=== PATIENT | male | born 2000 | race Caucasian/White ===

== ENCOUNTER 2021-07-31 18:54 | Emergency (ER) | payer MEDICAID, SELFPAY | END 2021-07-31 19:18 | disposition left against medical advice (07) | PROVIDERS: Emergency Provider Emergency Medicine | DX: S49.90XA Unspecified injury of shoulder and upper arm, unspecified arm, initial encounter (principal); X58.XXXA Exposure to other specified factors, initial encounter; Y93.9 Activity, unspecified; Y92.9 Unspecified place or not applicable; Y99.9 Unspecified external cause status ==

== ENCOUNTER 2021-10-11 19:51 | Emergency (ER) | payer MEDICAID, SELFPAY ==
[2021-10-11 21:43] VITALS: BP 133/72; PULSE 67; RESP 18; TEMP 36.7; O2SAT 100; BMI 28.3
--- NOTE | 2021-10-11 22:36 | ED.EXTPRO ---
HPI - Extremity Problem General Chief complaint: Extremity Injury, Upper Stated complaint: Right arm lac Time Seen by Provider: 10/11/21 22:36 Source: patient Mode of arrival: ambulatory Limitations: no limitations History of Present Illness HPI Narrative: 21-year-old male came in for evaluation of the left forearm small laceration that had been accidentally while moving a couch and [place] fell piece of glass is shattered and causing a small laceration on the left forearm. Patient declined any SI or HI, patient confirmed this was incidental event. Related Data Allergies Allergy/AdvReac Type Severity Reaction Status Date / Time No Known Allergies Allergy Unverified 08/10/20 18:53 [No Known Allergies*] Review of Systems Review of Systems: All other systems are reviewed and are negative Constitutional: Reports as per HPI and Reports no additional constitutional complaints Eyes: Reports as per HPI and Reports no additional eye complaints Reports system reviewed and no additional complaints, except as documented Cardiovascular: Reports as per HPI and Reports no additional cardiovascular complaints Respiratory: Reports as per HPI and Reports no additional respiratory complaints Gastrointestinal: Reports as per HPI and Reports no additional gastrointestinal complaints Genitourinary: Reports no additional female genitourinary complaints Musculoskeletal: Reports no additional musculoskeletal complaints Skin/Breast: Reports system reviewed and no additional complaints, except as docu Psychiatric: Reports no additional psychiatric complaints Endocrine: Reports no additional endocrine complaints Hematologic/Lymphatic: Reports no additional hematologic/lymphatic complaints Allergic/Immunologic: Reports no additional allergic/immunologic complaints Reports system reviewed and no additional complaints, except as documented and Reports Abnormal speech present [facility] Social History Social History Advance Directives: No Advance Directives Information Provided: No Physical Exam Vital Signs: Vital Signs: Last Vital Signs Temp 98.1 F 10/11/21 21:43 Pulse 67 10/11/21 21:43 Resp 18 10/11/21 21:43 BP 133/72 10/11/21 21:43 Pulse Ox 100 10/11/21 21:43 Body Mass Index 28.3 Vital signs have been reviewed as appeared to be correct. Blood pressure normal. Heart rate normal. Respiration rate normal. Temperature normal. Oxygen saturation normal. Appearance: Alert. Oriented X3. No acute distress. Head: Normal external exam. Normocephalic. Atraumatic. No Velasco signs noted. No raccoon eyes noted Eyes: PERRLA. EOMI. Conjunctiva and sclera normal. Eyelids normal. ENT: TM's Normal. Pharynx normal. Uvula midline. Moist mucous membranes. No trismus noted. No drooling noted. No muffled voice noted. Neck: Normal inspection. Neck supple. FROM. No adenopathy. Thyroid Normal. No meningeal signs. No neck mass noted. CVS: Normal heart rate and rhythm. Heart sound normal. No murmurs noted. Pulses normal throughout. Respiratory: No respiratory distress. Painless inspiration. Breath sounds normal. No wheezes/rales/rhonchi noted. Chest nontender. No accessory muscle usage noted or decreased air movement noted. Abdomen: Soft and nontender. Bowel sounds normal in all 4 quadrants. No distention noted. No organomegaly noted. No visible injury noted. Back: No CVA tenderness. Full range of motion noted. Skin: Skin warm and dry. Normal skin color. Normal skin turgor. No rashes/lesions/lacerations noted. Extremities: Left arm exam: Left forearm on the radial aspect 5 cm superficial laceration, no active bleeding, neurovascularly intact the distal and proximal to the laceration. Neuro: Oriented X 3. Cranial nerve exam: II-XII are grossly intact No motor deficit. No sensory deficit. Reflexes normal. Course Course Course Narrative: Assessment and plan. 21-year-old male with a superficial laceration happen after incidental fall of a manner while moving furniture, laceration will be repaired with Dermabond. Patient neurovascularly intact. No active bleeding. Procedures Laceration Laceration 1: Site: upper extremity (Left forearm) Side (If applicable): left Size (cm): 4 Description: linear Depth: simple, single layer Skin layer closed with: other (Dermabond) Discharge Plan Discharge Clinical Impression: Laceration of forearm, left Patient Disposition: Home, Self-Care Instructions: Laceration (ED) Referrals: Physician,Unknown J [Primary Care Provider] - 2 days
== END 2021-10-11 22:53 | disposition home or self-care (01) ==
PROVIDERS: Emergency Provider Emergency Medicine
DX: S51.812A Laceration without foreign body of left forearm, initial encounter (principal); W25.XXXA Contact with sharp glass, initial encounter; Y93.E9 Activity, other interior property and clothing maintenance; Y92.039 Unspecified place in apartment as the place of occurrence of the external cause; Y99.9 Unspecified external cause status
CPT/HCPCS: 12002; 99283

== ENCOUNTER 2022-08-15 03:25 | Emergency (ER) | payer OTHER, SELFPAY ==
--- NOTE | ~2022-08-15 | US_ITS ---
EXAMINATION: US SCROTUM CLINICAL INFORMATION: Pain. Question torsion. COMPARISON: None TECHNIQUE: A sonogram of the scrotum was performed assessing weems-scale appearance and color Doppler flow. Spectral Doppler analysis of the arterial and venous flow were performed in the testes bilaterally. FINDINGS: RIGHT: Right testicle measures 4.2 x 2.5 x 3 cm, volume 16.7 mL. No focal testicular parenchymal lesions are visualized. Spectral Doppler analysis of the arterial and venous flow is normal in the right testis. Scrotal hermilo noted. Right epididymal head is normal in size. No right hydrocele or varicocele is seen. Right epididymal Doppler flow is normal. LEFT: Left testicle measures 4.1 x 2.7 x 3 cm, volume 17.5 mL. No focal testicular parenchymal lesions are visualized. Spectral Doppler analysis of the arterial and venous flow is normal in the left testis. Scrotal hermilo noted. Left epididymal head is normal in size. No left hydrocele or varicocele is seen. Left epididymal Doppler flow is normal. US/US scrotum IMPRESSION: Normal testicular ultrasound. No torsion.
--- NOTE | ~2022-08-15 | US_ITS ---
EXAMINATION: US SCROTUM CLINICAL INFORMATION: Pain. Question torsion. COMPARISON: None TECHNIQUE: A sonogram of the scrotum was performed assessing weems-scale appearance and color Doppler flow. Spectral Doppler analysis of the arterial and venous flow were performed in the testes bilaterally. FINDINGS: RIGHT: Right testicle measures 4.2 x 2.5 x 3 cm, volume 16.7 mL. No focal testicular parenchymal lesions are visualized. Spectral Doppler analysis of the arterial and venous flow is normal in the right testis. Scrotal hermilo noted. Right epididymal head is normal in size. No right hydrocele or varicocele is seen. Right epididymal Doppler flow is normal. LEFT: Left testicle measures 4.1 x 2.7 x 3 cm, volume 17.5 mL. No focal testicular parenchymal lesions are visualized. Spectral Doppler analysis of the arterial and venous flow is normal in the left testis. Scrotal hermilo noted. Left epididymal head is normal in size. No left hydrocele or varicocele is seen. Left epididymal Doppler flow is normal. US/US scrotum doppler IMPRESSION: Normal testicular ultrasound. No torsion.
[2022-08-15 03:42] VITALS: BP 113/50; PULSE 78; RESP 18; TEMP 37.2; O2SAT 96; BMI 28.2
[2022-08-15 03:56] VITALS: BP 102/54; PULSE 67; RESP 17; TEMP 36.6; O2SAT 97
--- NOTE | 2022-08-15 04:42 | ED_ITS ---
HPI - General Adult General Chief complaint: General Medical Stated complaint: Swollen testicle Time Seen by Provider: 08/15/22 04:41 History of Present Illness HPI narrative: Patient is a 22-year-old male complaining of swelling to the left testicle. Positive pain. Symptoms been ongoing for about 24 hours. No nausea no vomiting positive generalized malaise. Patient woke up tried to use the bathroom and noticed his grown to be extremely swollen. Came to the ED for further evalua tion. No abdominal pain no chest pain no shortness of breath no change in bowel movements. Patient is from home. Related Data Previous Rx's Medication Instructions Recorded doxycycline hyclate 100 mg capsule 100 mg PO BID cough 7 days #14 caps 08/15/22 Allergies Allergy/AdvReac Type Severity Reaction Status Date / Time No Known Allergies Allergy Unverified 08/10/20 18:53 [No Known Allergies*] Review of Systems Review of Systems: No chest pain or shortness breath no nausea no vomiting positive scrotal swelling Yes all other systems are reviewed and are negative [facility] Social History Social History Alcohol intake: current Alcohol intake frequency: holidays/special occasions only Patient Tobacco Use Status: Never used Tobacco Use of substances other than those prescribed or required for medical reasons: No Advance Directives: No Physical Exam ED Vital Signs: Vital Signs - 24 hr 08/15/22 03:42 08/15/22 03:56 Temperature 99.0 F 97.9 F Pulse Rate 78 67 Respiratory Rate 18 17 Blood Pressure 113/50 L 102/54 L Pulse Oximetry 96 97 Oxygen Delivery Method Room Air Room Air BMI result Body Mass Index 28.2 Appearance: Alert. Oriented X3. No acute distress. Eyes: Pupils equal, round and reactive to light. ENT: Pharynx normal. Neck: Normal inspection. Neck supple. No lymph nodes noted. No crepitus CVS: Normal heart rate and rhythm. Pulses normal. Normal S1 and S2 Respiratory: No respiratory distress. Breath sounds normal. No Wheezing. No rales Abdomen: Soft and nontender. No rigidity. No distention. good BS x4 Examination genitalia was done with nurse nor are present. The left testicle swollen nontender to touch. The scrotum appears thickened. There is no gross erythema noted. the right testicle is of normal size nontender there is no hernia that was palpable. Skin: Skin warm and dry. Normal skin color. Normal skin turgor. Extremities: No lower extremity edema. Neurovascular intact to all extremities. No Lacerations. No Rash Neuro: Oriented X 3. No motor deficit. No sensory deficit. Moving all exte rmities. No slurred speech Medical Decision Making MDM Narrative Medical decision making narrative: Ultrasound and labs ordered. Patient has testicular pain. Scrotal swelling. Ultrasound did not show any acute evidence of torsion. Question epididymitis orchitis. Questions swelling thickened scrotal wall. Will treat with doxycycline. Follow up Urology on an outpatient basis. Patient is in stable condition. Of note patient's alcohol is a proximally 150 he was monitored in the emergency department for about 2 hours. Clinically sober at this point. Patient is to be discharged home. GC chlamydia was sent. Lab Data Result diagrams: 08/15/22 04:53 08/15/22 04:53 Labs: Lab Results 08/15/22 08/15/22 08/15/22 Range/Units 04:53 04:53 04:53 WBC 8.1 (4.8-10.8) X10*3/uL RBC 5.00 (4.60-5.80) X10*6/uL Hgb 13.9 L (14.0-18.0) g/dl Hct 41.7 L (42.0-52.0) % MCV 83.4 (80.0-98.0) fL MCH 27.8 (27.0-33.0) pg MCHC 33.3 (31.0-36.0) g/dl RDW 12.9 (11.0-16.0) % Plt Count 216 (160-400) X10*3/uL MPV 10.0 (9.4-12.4) fL Immature Gran % (Auto) 0.2 (0.0-0.4) % Neut % (Auto) 69.8 (45-73) % Lymph % (Auto) 20.0 (20-40) % Cedar % (Auto) 9.3 (2-11) % Eos % (Auto) 0.5 (0-4) % Baso % (Auto) 0.2 (0-2) % Lymph # (Auto) 1.6 (1.2-4.9) X10*3/uL Cedar # (Auto) 0.8 (0.1-1.2) X10*3/uL Eos # (Auto) 0.0 (0.0-0.4) X10*3/uL Baso # (Auto) 0.0 (0.0-0.2) X10*3/uL Abs Immat Gran (auto) 0.02 (0.00-0.03) X10*3/uL Absolute Neuts (auto) 5.7 (2.0-8.3) x10*3/uL Absolute Nucleated RBC 0.000 (0.0-0.012) X10*3/uL Nucleated RBC % (auto) 0.0 (0.0-0.2) /100WBC Sodium 146 H (135-145) mmol/L Potassium 3.8 (3.3-5.1) mmol/L Chloride 112 H (96-108) mmol/L Carbon Dioxide 21 L (22-29) mmol/L Anion Gap 17 (12-20) BUN 21 H (9-16) mg/dL Creatinine 0.94 (0.5-1.4) mg/dL Estim Creat Clear Calc 133.2 Estimated GFR > 60 Random Glucose 102 (60-115) mg/dL Calcium 9.6 (8.4-10.2) mg/dL Ethyl Alcohol 142 mg/dL Discharge Plan Discharge Clinical Impression: Scrotal edema, Orchitis and epididymitis Patient Disposition: Home, Self-Care Additional Instructions: Refrain from sexual contact until all partners are tested and or treated. Prescriptions: New doxycycline hyclate 100 mg capsule 100 mg PO BID 7 Days Qty: 14 0RF Referrals: Jakub Bronson MD [Physician] -
[2022-08-15 04:58] LABS: Basophils Percent Auto 0.2 % (0-2); Eosinophils Percent Auto 0.5 % (0-4); Hematocrit 41.7 % (42.0-52.0); Hemoglobin 13.9 g/dl (14.0-18.0); Imm Gran Abs Auto 0.02 X10*3/uL (0.00-0.03); Imm Gran Pct Auto 0.2 % (0.0-0.4); Lymphocytes Absolute Auto 1.6 X10*3/uL (1.2-4.9); MANUAL DIFF FLAG NO; Mean Corpuscular HGB Conc 33.3 g/dl (31.0-36.0); Mean Corpuscular Hemoglobin 27.8 pg (27.0-33.0); Mean Corpuscular Volume 83.4 fL (80.0-98.0); Monocytes Absolute Auto 0.8 X10*3/uL (0.1-1.2); Monocytes Percent Auto 9.3 % (2-11); Neutrophils Absolute Auto 5.7 x10*3/uL (2.0-8.3); Neutrophils Percent Auto 69.8 % (45-73); Platelet Count 216 X10*3/uL (160-400); Red Cell Distribution Width 12.9 % (11.0-16.0); White Blood Count 8.1 X10*3/uL (4.8-10.8)
[2022-08-15 05:10] LABS: Ethanol 142 mg/dL
[2022-08-15 05:12] LABS: Anion Gap 17 (12-20); Blood Urea Nitrogen 21 mg/dL (9-16); Calcium 9.6 mg/dL (8.4-10.2); Carbon Dioxide 21 mmol/L (22-29); Chloride 112 mmol/L (96-108); Creatinine Clr Calc Pharmacy 133.2; Estimated Glomerular Filt Rate > 60; Glucose Random 102 mg/dL (60-115); Potassium 3.8 mmol/L (3.3-5.1); Sodium 146 mmol/L (135-145)
[2022-08-15 06:18] VITALS: BP 111/63; PULSE 66; RESP 16; TEMP 36.5; O2SAT 97
[2022-08-15 06:32] LABS: Appearance Urine Clear; Color Urine Yellow; Glucose Urine UA Negative (Negative); Leukocyte Esterase Urine Negative (Negative); Nitrite Urine Negative (Negative); Specific Gravity - Urine 1.025 (1.005-1.025); Urine Blood Negative (Negative); Urine Ketones 15 mg/dL (Negative); Urine Protein Negative (Neg-Trace)
[2022-08-15 06:36] LABS: Bacteria Urine None Seen (None Seen); Hyaline Casts Urine 0-2 /LPF (0-2); RBC Urine 0-2 /HPF (0-2); Squamous Epithelial Cell Urine 0-2 /HPF (0-2); WBC Urine 0-5 /HPF (0-5)
--- NOTE | 2022-08-15 06:38 | PC.NURSE ---
Reviewed discharge instruction with pt. pt verbalized understanding.
[2022-08-15 08:06] LABS: CT PCR NOT DETECTED (Not Detect.); NG PCR NOT DETECTED (Not Detect.)
== END 2022-08-15 06:41 | disposition home or self-care (01) ==
PROVIDERS: Emergency Provider Emergency Medicine Emergency Medical Services
DX: N50.812 Left testicular pain (principal); N45.2 Orchitis; N45.1 Epididymitis; R10.2 Pelvic and perineal pain; Z79.899 Other long term (current) drug therapy
CPT/HCPCS: 36415; 76870; 80048; 81001; 82077; 85025; 87491; 87591; 93975; 99284

== ENCOUNTER 2022-08-16 13:41 | Observation (INO) | payer MEDICAID, SELFPAY ==
--- NOTE | ~2022-08-16 | CT_ITS ---
EXAMINATION: CT PELVIS WITH CONTRAST CLINICAL INFORMATION: Gangrenous infection of the testicle COMPARISON: Scrotal ultrasound performed earlier the same day TECHNIQUE: Helical scanning was performed with submillimeter collimation through the pelvis with the use of oral contrast and during bolus intravenous injection of 85 mL of Omnipaque 350 intravenous contrast. Sagittal and coronal multiplanar 2-D reconstructions were obtained. This CT examination was performed using dose optimization techniques as appropriate, variously including the following: *Automated exposure control *Adjustment of mA and/or kV according to patient size (this includes techniques or standardized protocols for targeted exams where dose is matched to indication/reason for exam; i.e. extremities or head) *Use of iterative reconstruction technique DLP: 372 mGy-cm FINDINGS: PELVIS: Extensive diffuse scrotal edema and there is mild subcutaneous edema/stranding extending cephalad to the base of the penis in the anterior lower pelvis to just above the pubic symphysis and laterally overlying the left groin. No peripheral enhancing loculated fluid collections suggest abscess. No soft tissue gas. A small calcification along the margin left testis is noted. Additional linear soft tissue thickening extending from the posterior left hemiscrotum to the ventral penile base on coronal image 30. No pelvic or inguinal lymphadenopathy. No free pelvic fluid. Large grossly unremarkable. Moderate amount of formed stool in the rectum. No dilated bowel loops in the [id number]. OSSEOUS STRUCTURES: No acute fracture or suspicious osseous lesion. Mild disc height loss at L4-L5 noted. CT/CT pelvis w IV con IMPRESSION: 1. Diffuse scrotal edema/thickening. Correlate with evidence of scrotal cellulitis on exam. No tracking soft tissue gas to suggest specific evidence of gas forming infection. Subcutaneous edema/stranding extends into the anterior lower pelvis above the base of the penis and into the anterior left groin. 2. Linear soft tissue thickening extending from posterior left hemiscrotum toward the base of the posterior penis, presumably soft tissue inflammation or phlegmon. No peripheral enhancing formed abscess identified.
--- NOTE | ~2022-08-16 | US_ITS ---
EXAMINATION: US SCROTUM CLINICAL INFORMATION: Swelling and blue discoloration. Thickened scrotal skin. COMPARISON: Testicular ultrasound dated from 08/15/2022. TECHNIQUE: A sonogram of the scrotum was performed assessing weems-scale appearance and color Doppler flow. Spectral Doppler analysis of the arterial and venous flow were performed in the testes bilaterally. FINDINGS: There is significant soft tissue swelling and thickening in the bilateral inguinal and scrotal regions. There are hyperechoic foci along the periphery of both testis and epididymis with clean posterior shadowing. RIGHT: Right testicle measures 4.2 x 2.5 x 3.1 cm, volume 17 mL. No focal testicular parenchymal lesions are visualized. Spectral Doppler analysis of the arterial and venous flow is normal in the right testis. Right epididymal head is normal in size. No right hydrocele or varicocele is seen. Right epididymal Doppler flow is normal. LEFT: Left testicle measures 4.1 x 2.5 x 3.1 cm, volume 16.6 mL. No focal testicular parenchymal lesions are visualized. Spectral Doppler analysis of the arterial and venous flow is normal in the left testis. Left epididymal head is normal in size. No left hydrocele or varicocele is seen. Left epididymal Doppler flow is normal. US/US scrotum doppler IMPRESSION: Worsening now marked soft tissue thickening and swelling. Hyperechoic foci around the testicles and epididymides bilaterally with posterior shadowing likely represent calcifications. However, foci of air cannot be entirely excluded. Recommend correlation with physical examination to exclude a gangrenous infection. No evidence of testicular torsion at the moment of this examination. This critical result was discussed with Getachew Joe MD at 08/16/2022 3:00 PM and it was ascertained that the content and urgency of the report was understood at the time of direct communication.
--- NOTE | ~2022-08-16 | US_ITS ---
EXAMINATION: US SCROTUM CLINICAL INFORMATION: Swelling and blue discoloration. Thickened scrotal skin. COMPARISON: Testicular ultrasound dated from 08/15/2022. TECHNIQUE: A sonogram of the scrotum was performed assessing weems-scale appearance and color Doppler flow. Spectral Doppler analysis of the arterial and venous flow were performed in the testes bilaterally. FINDINGS: There is significant soft tissue swelling and thickening in the bilateral inguinal and scrotal regions. There are hyperechoic foci along the periphery of both testis and epididymis with clean posterior shadowing. RIGHT: Right testicle measures 4.2 x 2.5 x 3.1 cm, volume 17 mL. No focal testicular parenchymal lesions are visualized. Spectral Doppler analysis of the arterial and venous flow is normal in the right testis. Right epididymal head is normal in size. No right hydrocele or varicocele is seen. Right epididymal Doppler flow is normal. LEFT: Left testicle measures 4.1 x 2.5 x 3.1 cm, volume 16.6 mL. No focal testicular parenchymal lesions are visualized. Spectral Doppler analysis of the arterial and venous flow is normal in the left testis. Left epididymal head is normal in size. No left hydrocele or varicocele is seen. Left epididymal Doppler flow is normal. US/US scrotum IMPRESSION: Worsening now marked soft tissue thickening and swelling. Hyperechoic foci around the testicles and epididymides bilaterally with posterior shadowing likely represent calcifications. However, foci of air cannot be entirely excluded. Recommend correlation with physical examination to exclude a gangrenous infection. No evidence of testicular torsion at the moment of this examination. This critical result was discussed with Getachew Joe MD at 08/16/2022 3:00 PM and it was ascertained that the content and urgency of the report was understood at the time of direct communication.
[2022-08-16 13:43] VITALS: BP 145/82; PULSE 69; RESP 18; TEMP 36.6; O2SAT 99; BMI 28.0
--- NOTE | 2022-08-16 14:39 | ED_ITS ---
HPI - Male Genitourinary General Chief complaint: Urogenital-Male Stated complaint: testicle pain/scrotum turns blue Time Seen by Provider: 08/16/22 14:19 Source: patient Mode of arrival: ambulatory Limitations: no limitations History of Present Illness HPI Narrative: 22-year-old male seen here yesterday diagnosed with bronchitis on ultrasound was sent home on doxycycline he states that he started with swelling yesterday morning swelling increased now at 48 hours and he has noticed purplish discoloration of both testicles pains worse on the left. Patient denies any falls or injuries he states never had this problem before states he was seen by Dr. Bronson. Patient was brought back to the emergency room after having ultrasound that showed a gangrenous testicle. MD Complaint: testicle pain and testicle swelling Related Data Previous Rx's Medication Instructions Recorded doxycycline hyclate 100 mg capsule 100 mg PO BID cough 7 days #14 caps 08/15/22 Allergies Allergy/AdvReac Type Severity Reaction Status Date / Time No Known Allergies Allergy Unverified 08/10/20 18:53 [No Known Allergies*] Review of Systems Review of Systems: Review of systems: General: Patient denies any fever chills recent illness or falls Musculoskeletal: Denies back pain or body aches or other injuries HEENT: denies headache, runny nose, ear pain Respiratory: denies shortness of breath, cough Cardiovascular: no chest pain or palpitations : Testicular pain and swelling denies dysuria, frequency Abdomen: no nausea vomiting denies abdominal pain Extremities: no swelling, no pain Skin: no diaphoresis Yes all other systems are reviewed and are negative PMF[facility] Social History Social History Alcohol intake: current Alcohol intake frequency: holidays/special occasions only Patient Tobacco Use Status: Never used Tobacco Advance Directives: No Advance Directives Information Provided: Yes Physical Exam Vital Signs: Vital Signs: Last Vital Signs Temp 97.5 F 08/16/22 16:55 Pulse 61 08/16/22 16:55 Resp 15 08/16/22 16:55 BP 128/63 08/16/22 16:55 Pulse Ox 96 08/16/22 16:55 O2 Del Method 08/16/22 16:55 BMI result Body Mass Index 28.0 General: Well-appearing well-nourished in no signs of distress HEENT: Normocephalic atraumatic Neck: No signs of JVD, no masses no tenderness or lymphadenopathy Cardiovascular: Regular rate and rhythm Respiratory: Clear to auscultation bilaterally Abdomen: Soft nontender no masses Testes: Patient has purplish discoloration seeping up above his penis very tender to bilateral testes Extremities: Normal pedal pulses no signs of edema Skin: Dry warm no rashes Back: No tenderness full ROM Course Course Course Narrative: Call from ultrasound said the patient had gangrene to his testicle concern is that he has torsed his testicle call made to Dr. Bronson to come and see the patient. MDM - Male Genitourinary MDM Narrative Medical decision making narrative: Patient with concerns of scrotum thickening and bruising. Sent for CT after US showed some concerns. I spoke with Dr. Bronson who wanted to have a picture which was sent via secure messaging. Patient sent for CT I spoke with CT and waved his labs so we could get the CT sooner. Seen by Dr. Bronson who was unsure and didn't feel like it was infected. He felt is was more like a hematoma. CT continues to read soft tissue thickening. Dr. Bronson wants the patient admitted to medicine. [address] Rodriguez from surgery who also agreed with Dr. Bronson that it was not inected and didn't look like griffin's gangrene. He will follow the patient but wanted them followed by medicine. Page sent to medicine. 1720 Seen by hospitalist will be admitted. Medical Records Attestation: I reviewed the patient's medical records. Lab Data Attestation: I reviewed the patient's lab results. Result diagrams: 08/16/22 14:40 08/16/22 14:40 Labs: Lab Results 08/16/22 08/16/22 08/16/22 Range/Units 14:39 14:39 14:39 WBC (4.8-10.8) X10*3/uL RBC (4.60-5.80) X10*6/uL Hgb (14.0-18.0) g/dl Hct (42.0-52.0) % MCV (80.0-98.0) fL MCH (27.0-33.0) pg MCHC (31.0-36.0) g/dl RDW (11.0-16.0) % Plt Count (160-400) X10*3/uL MPV (9.4-12.4) fL Immature Gran % (Auto) (0.0-0.4) % Neut % (Auto) (45-73) % Lymph % (Auto) (20-40) % Kingman % (Auto) (2-11) % Eos % (Auto) (0-4) % Baso % (Auto) (0-2) % Lymph # (Auto) (1.2-4.9) X10*3/uL [place]man # (Auto) (0.1-1.2) X10*3/uL Eos # (Auto) (0.0-0.4) X10*3/uL Baso # (Auto) (0.0-0.2) X10*3/uL Abs Immat Gran (auto) (0.00-0.03) X10*3/uL Absolute Neuts (auto) (2.0-8.3) x10*3/uL Absolute Nucleated RBC (0.0-0.012) X10*3/uL Nucleated RBC % (auto) (0.0-0.2) /100WBC Sodium 143 (135-145) mmol/L Potassium 4.4 (3.3-5.1) mmol/L Chloride 105 (96-108) mmol/L Carbon Dioxide 29 (22-29) mmol/L Anion Gap 13 (12-20) BUN 15 (9-16) mg/dL Creatinine 1.01 (0.5-1.4) mg/dL Estim Creat Clear Calc 123.7 Estimated GFR > 60 Random Glucose 98 (60-115) mg/dL Lactic Acid 1.7 (0.5-2.0) mmol/L Calcium 10.2 D (8.4-10.2) mg/dL Total Bilirubin (0.0-1.0) mg/dL AST (5-37) U/L ALT (0-40) U/L Alkaline Phosphatase (39-117) U/L Total Protein (6.5-8.0) g/dL Albumin (3.5-5.0) g/dL COVID-19 (NAYELY) Negative (Negative) COVID-19 Clin Com See Note 08/16/22 08/16/22 Range/Units 14:40 14:40 WBC 8.5 (4.8-10.8) X10*3/uL RBC 5.06 (4.60-5.80) X10*6/uL Hgb 14.5 (14.0-18.0) g/dl Hct 43.3 (42.0-52.0) % MCV 85.6 (80.0-98.0) fL MCH 28.7 (27.0-33.0) pg MCHC 33.5 (31.0-36.0) g/dl RDW 13.2 (11.0-16.0) % Plt Count 218 (160-400) X10*3/uL MPV 10.3 (9.4-12.4) fL Immature Gran % (Auto) 0.2 (0.0-0.4) % Neut % (Auto) 66.0 (45-73) % Lymph % (Auto) 24.2 (20-40) % Kingman % (Auto) 8.0 (2-11) % Eos % (Auto) 1.1 (0-4) % Baso % (Auto) 0.5 (0-2) % Lymph # (Auto) 2.1 (1.2-4.9) X10*3/uL [place]man # (Auto) 0.7 (0.1-1.2) X10*3/uL Eos # (Auto) 0.1 (0.0-0.4) X10*3/uL Baso # (Auto) 0.0 (0.0-0.2) X10*3/uL Abs Immat Gran (auto) 0.02 (0.00-0.03) X10*3/uL Absolute Neuts (auto) 5.6 (2.0-8.3) x10*3/uL Absolute Nucleated RBC 0.000 (0.0-0.012) X10*3/uL Nucleated RBC % (auto) 0.0 (0.0-0.2) /100WBC Sodium 143 (135-145) mmol/L Potassium 4.4 (3.3-5.1) mmol/L Chloride 105 (96-108) mmol/L Carbon Dioxide 27 (22-29) mmol/L Anion Gap 15 (12-20) BUN 15 (9-16) mg/dL Creatinine 1.00 (0.5-1.4) mg/dL Estim Creat Clear Calc 124.9 Estimated GFR > 60 Random Glucose 99 (60-115) mg/dL Lactic Acid (0.5-2.0) mmol/L Calcium 10.2 (8.4-10.2) mg/dL Total Bilirubin 0.7 (0.0-1.0) mg/dL AST 25 (5-37) U/L ALT 22 (0-40) U/L Alkaline Phosphatase 76 (39-117) U/L Total Protein 6.8 (6.5-8.0) g/dL Albumin 4.7 (3.5-5.0) g/dL COVID-19 (NAYELY) (Negative) COVID-19 Clin Com Critical Care Time Critical Care Time Critical Care Time: Yes Total Critical Care Time: 75 Attestation: Brought back and seen immediately after US. Multiple re-evaluations and spoke with specialist from Urology surgery and medicine. Treated aggressively with IV antibiotics requiring admission. Discharge Plan Discharge Clinical Impression: Scrotal swelling Patient Disposition: Admitted As Inpatient
[2022-08-16] MEDS: 0.9 % Sodium Chloride 1,000 ML 999 ML IV (14:50)
[2022-08-16 14:52] LABS: MANUAL DIFF FLAG NO
[2022-08-16 14:54] LABS: Basophils Percent Auto 0.5 % (0-2); Eosinophils Absolute Auto 0.1 X10*3/uL (0.0-0.4); Eosinophils Percent Auto 1.1 % (0-4); Hematocrit 43.3 % (42.0-52.0); Hemoglobin 14.5 g/dl (14.0-18.0); Imm Gran Abs Auto 0.02 X10*3/uL (0.00-0.03); Imm Gran Pct Auto 0.2 % (0.0-0.4); Lymphocytes Absolute Auto 2.1 X10*3/uL (1.2-4.9); Lymphocytes Percent Auto 24.2 % (20-40); Mean Corpuscular HGB Conc 33.5 g/dl (31.0-36.0); Mean Corpuscular Hemoglobin 28.7 pg (27.0-33.0); Mean Corpuscular Volume 85.6 fL (80.0-98.0); Mean Platelet Volume 10.3 fL (9.4-12.4); Monocytes Absolute Auto 0.7 X10*3/uL (0.1-1.2); Neutrophils Absolute Auto 5.6 x10*3/uL (2.0-8.3); Platelet Count 218 X10*3/uL (160-400); Red Blood Count 5.06 X10*6/uL (4.60-5.80); Red Cell Distribution Width 13.2 % (11.0-16.0); White Blood Count 8.5 X10*3/uL (4.8-10.8)
[2022-08-16 15:09] LABS: Lactic Acid 1.7 mmol/L (0.5-2.0)
--- NOTE | 2022-08-16 15:10 | PHA.MEDREC ---
Pharmacy Consult ? Medication Reconciliation Pharmacy has completed the medication reconciliation. Patient took one tylenol tablet today. Thanks Joao
[2022-08-16 15:13] LABS: Anion Gap 13 (12-20); Blood Urea Nitrogen 15 mg/dL (9-16); Calcium 10.2 mg/dL (8.4-10.2); Carbon Dioxide 29 mmol/L (22-29); Chloride 105 mmol/L (96-108); Creatinine Clr Calc Pharmacy 123.7; Estimated Glomerular Filt Rate > 60; Glucose Random 98 mg/dL (60-115); Potassium 4.4 mmol/L (3.3-5.1); Sodium 143 mmol/L (135-145)
[2022-08-16 15:14] LABS: Alanine Aminotransferase 22 U/L (0-40); Albumin Level 4.7 g/dL (3.5-5.0); Alkaline Phosphatase 76 U/L (39-117); Anion Gap 15 (12-20); Aspartate Amino Transferase 25 U/L (5-37); Bilirubin Total 0.7 mg/dL (0.0-1.0); Blood Urea Nitrogen 15 mg/dL (9-16); Calcium 10.2 mg/dL (8.4-10.2); Carbon Dioxide 27 mmol/L (22-29); Chloride 105 mmol/L (96-108); Creatinine Clr Calc Pharmacy 124.9; Estimated Glomerular Filt Rate > 60; Glucose Random 99 mg/dL (60-115); Potassium 4.4 mmol/L (3.3-5.1); Sodium 143 mmol/L (135-145); Total Protein 6.8 g/dL (6.5-8.0)
[2022-08-16 15:15] LABS: COVID-19 Test Negative (Negative); IDNOW Serial# 9DB6401D
[2022-08-16] MEDS: iohexoL 350 MG/ML 100 ML INFUS..BTL IV (15:31)
[2022-08-16] MEDS: Piperacillin Sodium/Tazobactam 4.5 GM in 0.9 % Sodium Chloride 100 ML IV (15:36)
[2022-08-16] MEDS: Clindamycin Phosphate/D5W 900 MG/50 ML PIGGYBACK 50 MG IV (16:21)
[2022-08-16 16:55] VITALS: BP 128/63; PULSE 61; RESP 15; TEMP 36.4; O2SAT 96
--- NOTE | 2022-08-16 17:13 | P.CONGS_ITS ---
History of Present Illness Consult details Consult date: 08/16/22 Narrative: 22M referred for scrotal pain. He says that he had first noticed this around 2 AM on the morning of Aug 15, which was about 38 hours ago. He says he went running in [place] late afternoon of Aug 14, and was fine when he went to bed. He says he randomly woke up at 2AM and noticed some discoloration of his scrot um. He describes some pain as well. He went to the ED and was discharged but he hhad noticed that the discoloration had extended to the entire scrotum. He continues to have some pain and tenderness. There is no drainage. He denies any fever or chills. He denies any urinary complaints. Review of Systems Constitutional: Constitutional: Denies chills and Denies fever(s) Cardiovascular: Cardiovascular: Denies chest pain, Denies dyspnea and Denies dyspnea on exertion Respiratory: Respiratory: Denies cough, Denies dyspnea and Denies dyspnea on exertion Gastrointestinal: Gastrointestinal: Denies hematochezia and Denies change in bowel habits Genitourinary: Genitourinary: Denies hematuria and Denies difficulty urinating Musculoskeletal: Musculoskeletal: Denies back pain and Denies limited range of motion Neurologic: Denies focal weakness and Denies convulsions Psychiatric: Psychiatric: Denies depression and Denies mood swings [facility] Social History Social History Alcohol intake: current Alcohol intake frequency: holidays/special occasions only Patient Tobacco Use Status: Never used Tobacco Meds Allergies Allergy/AdvReac Type Severity Reaction Status Date / Time No Known Allergies Allergy Unverified 08/10/20 18:53 [No Known Allergies*] Active Medications: Current Medications Pharmacy Consult (Consult Rx Perform Med Rec) 1 each MISCELLANE ONCE PRN PRN Reason: Consult order Physical Exam Vital Signs: Vital Signs: Last Vital Signs Temp 97.5 F 08/16/22 16:55 Pulse 61 08/16/22 16:55 Resp 15 08/16/22 16:55 BP 128/63 08/16/22 16:55 Pulse Ox 96 08/16/22 16:55 O2 Del Method 08/16/22 16:55 BMI result Body Mass Index 28.0 Const: Other: looks well General: comfortable and no acute distress Orientation/consciousness: patient oriented x3 Neck: Neck: Yes no lymphadenopathy Resp: Auscultation: clear to auscultation bilaterally Cardio: Rhythm: regular rhythm GI: Palpation (GI): Soft to palpation, nontender and no guarding : Other: dark discoloration of the skin of the scrotum, ecchymotic looking, no cellulitis, no sinus/drainage, no induration, some tenderness diffusely, no crepitus, no skin changes in the perineum Neuro: General: patient oriented x3 Results Labs Result diagrams: 08/16/22 14:40 08/18/22 04:46 Labs: Short CBC 08/16/22 Range/Units 14:40 WBC 8.5 (4.8-10.8) X10*3/uL Hgb 14.5 (14.0-18.0) g/dl Hct 43.3 (42.0-52.0) % Plt Count 218 (160-400) X10*3/uL BMP 08/16/22 08/16/22 14:39 14:40 Sodium 143 143 Potassium 4.4 4.4 Chloride 105 105 Carbon Dioxide 29 27 BUN 15 15 Creatinine 1.01 1.00 Calcium 10.2 D 10.2 Liver Function 08/16/22 Range/Units 14:40 Total Bilirubin 0.7 (0.0-1.0) mg/dL AST 25 (5-37) U/L ALT 22 (0-40) U/L Alkaline Phosphatase 76 (39-117) U/L Albumin 4.7 (3.5-5.0) g/dL All other labs normal. Assessment and Plan (1) Scrotal swelling: Status: Acute He has diffuse edema of the scrotal skin with what appears to be ecchymoses thr oughout. Changes do not appear to be suggestive of Paulo's gangrene. He does not appear toxic at all and has no leukocytosis. I am uncertain as to the etiology of this ecchymoses. He has been evaluated by Urology earlier who has stated the same impression. I would recommend however to keep him for observation at least for tonight in view of the uncertainty of the diagnosis. I can reexamine him in the morning. Procedures Date of Service Date of Service: 08/16/22
--- NOTE | 2022-08-16 17:30 | PM.IMHP ---
History of Present Illness Date of Service: 08/16/22 Attending physician on admission: Radha Rausch Chief Complaint: scrotal swelling 22-year-old gentleman with no significant past medical history was seen at [facility] on 08/15 2 due to scrotal swelling according to the patient he went running at mouth down late afternoon did stay in years exercise then went to the bar where he had several drinks and randomly woke up at 02:00 with significant scrotal swelling and discoloration associated with mild discomfort therefore came to the emergency room where he had scrotal ultrasound that showed no significant abnormality at bedtime patient alcohol level was 142 patient was given a prescription of doxycycline 100 mg b.i.d. and was discharged home with recommendation for outpatient urology follow-up for concern for scrotal edema, orchitis / epididymitis cultures were drawn, however patient noticed worsening swelling of scrotum therefore returned back to the ED patient took 3 dosages of doxycycline, he denies associated fever chills, he denies any trauma he denies nausea vomiting abdominal pain he denies similar symptoms in the past he denies any drainage, in the emergency room today he was noticed to have purplish discoloration of is scrotum with mild discomfort on the left side, Dr. Bronson reviewed the film and does not feel it is infected he fell that is more like a hematoma CT scan of the pelvis showed soft tissue swelling patient also evaluated in the emergency room by Dr. 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 Review of Systems Review of Systems: General no headache no dizziness no fever chills. CVS no chest pain, no palpitation. Respiratory no cough no sob Gastrointestinal no nausea no vomiting, no abdominal pain Yes all other systems are reviewed and are negative [facility] Pertinent family history: family history of diabetes in grandfather, dad has emphysema / COPD, mom is healthy Social History Alcohol intake: current Alcohol intake frequency: holidays/special occasions only Patient Tobacco Use Status: Never used Tobacco Advance Directives: No Advance Directives Information Provided: Yes Meds Allergies Allergy/AdvReac Type Severity Reaction Status Date / Time No Known Allergies Allergy Unverified 08/10/20 18:53 [No Known Allergies*] Active Medications: Current Medications Acetaminophen (Acetaminophen 325 Mg Tablet) 650 mg PO Q6H PRN PRN Reason: Pain, Mild (Pain Scale 1-3) Vancomycin HCl 1,000 mg/ (Sodium Chloride) 270 mls @ 270 mls/hr IV ONCE ONE Stop: 08/16/22 18:24 Ondansetron HCl (Ondansetron Hcl 4 Mg/2 Ml Vial) 4 mg IVPUSH Q8H PRN PRN Reason: Nausea and Vomiting Pharmacy Consult (Consult Rx Perform Med Rec) 1 each MISCELLANE ONCE PRN PRN Reason: Consult order Pharmacy Consult (Consult Rx Vancomycin Dosing) 1 each MISCELLANE DAILY PRN PRN Reason: Consult order Physical Exam Vital Signs and Narrative: Vital Signs: Last Vital Signs Temp 97.5 F 08/16/22 16:55 Pulse 61 08/16/22 16:55 Resp 15 08/16/22 16:55 BP 128/63 08/16/22 16:55 Pulse Ox 96 08/16/22 16:55 O2 Del Method 08/16/22 16:55 BMI result Body Mass Index 28.0 Const: Other: General awake alert x3 no acute distress. Neck supple no JVD. CVS regular rate rhythm, Respiratory lungs clear to auscultation, no respiratory distress, no wheeze, no rhonchi. Gastrointestinal abdomen soft, nontender, bowel sounds audible, no guarding , no rigidity. Extremities no edema. Neuro nonfocal scrotal examination revealed dark discoloration of the skin of the scrotum ,no redness, no induration, mild discomfort, no skin changes, mostly ecchymotic looking Skin no rash Results Labs CBC and Chem 7: 08/16/22 14:40 08/17/22 11:20 Labs: Laboratory Results - last 24 hr 08/16/22 08/16/22 08/16/22 14:39 14:39 14:39 MCV MCH MCHC RDW Plt Count MPV Immature Gran % (Auto) Neut % (Auto) Lymph % (Auto) [place] % (Auto) Eos % (Auto) Baso % (Auto) Lymph # (Auto) [place] # (Auto) Eos # (Auto) Baso # (Auto) Abs Immat Gran (auto) Absolute Neuts (auto) Absolute Nucleated RBC Nucleated RBC % (auto) Anion Gap 13 Estim Creat Clear Calc 123.7 Estimated GFR > 60 Random Glucose 98 Lactic Acid 1.7 Calcium 10.2 D Total Bilirubin AST ALT Alkaline Phosphatase Total Protein Albumin COVID-19 (NAYELY) Negative COVID-19 Clin Com See Note 08/16/22 08/16/22 14:40 14:40 MCV 85.6 MCH 28.7 MCHC 33.5 RDW 13.2 Plt Count 218 MPV 10.3 Immature Gran % (Auto) 0.2 Neut % (Auto) 66.0 Lymph % (Auto) 24.2 [place] % (Auto) 8.0 Eos % (Auto) 1.1 Baso % (Auto) 0.5 Lymph # (Auto) 2.1 [place] # (Auto) 0.7 Eos # (Auto) 0.1 Baso # (Auto) 0.0 Abs Immat Gran (auto) 0.02 Absolute Neuts (auto) 5.6 Absolute Nucleated RBC 0.000 Nucleated RBC % (auto) 0.0 Anion Gap 15 Estim Creat Clear Calc 124.9 Estimated GFR > 60 Random Glucose 99 Lactic Acid Calcium 10.2 Total Bilirubin 0.7 AST 25 ALT 22 Alkaline Phosphatase 76 Total Protein 6.8 Albumin 4.7 COVID-19 (NAYELY) COVID-19 Clin Com Imaging Radiologist's Impressions: Impressions Scrotum Ultrasound 08/16/22 14:00 IMPRESSION: Worsening now marked soft tissue thickening and swelling. Hyperechoic foci around the testicles and epididymides bilaterally with posterior shadowing likely represent calcifications. However, foci of air cannot be entirely excluded. Recommend correlation with physical examination to exclude a gangrenous infection. No evidence of testicular torsion at the moment of this examination. This critical result was discussed with Getachew Joe MD at 08/16/2022 3:00 PM and it was ascertained that the content and urgency of the report was understood at the time of direct communication. Scrotum Ultrasound 08/16/22 14:04 IMPRESSION: Worsening now marked soft tissue thickening and swelling. Hyperechoic foci around the testicles and epididymides bilaterally with posterior shadowing likely represent calcifications. However, foci of air cannot be entirely excluded. Recommend correlation with physical examination to exclude a gangrenous infection. No evidence of testicular torsion at the moment of this examination. This critical result was discussed with Getachew Joe MD at 08/16/2022 3:00 PM and it was ascertained that the content and urgency of the report was understood at the time of direct communication. Scrotum Ultrasound 08/16/22 14:04 IMPRESSION: Worsening now marked soft tissue thickening and swelling. Hyperechoic foci around the testicles and epididymides bilaterally with posterior shadowing likely represent calcifications. However, foci of air cannot be entirely excluded. Recommend correlation with physical examination to exclude a gangrenous infection. No evidence of testicular torsion at the moment of this examination. This critical result was discussed with Getachew Joe MD at 08/16/2022 3:00 PM and it was ascertained that the content and urgency of the report was understood at the time of direct communication. Pelvis CT 08/16/22 15:31 IMPRESSION: 1. Diffuse scrotal edema/thickening. Correlate with evidence of scrotal cellulitis on exam. No tracking soft tissue gas to suggest specific evidence of gas forming infection. Subcutaneous edema/stranding extends into the anterior lower pelvis above the base of the penis and into the anterior left groin. 2. Linear soft tissue thickening extending from posterior left hemiscrotum toward the base of the posterior penis, presumably soft tissue inflammation or phlegmon. No peripheral enhancing formed abscess identified. Assessment and Plan (1) Scrotal swelling: Status: Acute Plan 22-year-old gentleman with no significant have medical history presented to [facility] due to his scrotal swelling of greater than 24 hours with no associated fever chills no nausea vomiting normal see WBC and no drainage. Scrotal swelling patient noted to have significant swelling of scrotum with no significant redness but ecchymosis mild tenderness no drainage, patient nontoxic appearing most likely related to trauma and bruising no evidence of infection with no fevers, no chills, normal WBC count, but since no cause of swelling found will cover with IV antibiotics vancomycin and Zosyn follow blood cultures and clinical course patient evaluated by General surgery Dr. Rodriguez and Dr. Bronson from Urology they both agree patient examination and clinical status not consistent with fourniers gangrene likely patient had trauma while he was under influence of alcohol,or related to heavy exercise /running ,will check urine toxicology. history of alcohol use as per patient he only drinks alcohol socially, counseling done DVT prophylaxis low risk Quality Stroke Does the patient have a stroke diagnosis?: No VTE Prior VTE?: No VTE Risk Level:: Medical - low VTE Device Contraindication: Treatment Not Indicated VTE Drug Contraindication: Treatment Not Indicated
[2022-08-16] MEDS: vancomycin HCL 1,500 MG in 0.9 % Sodium Chloride 500 ML 333.33 MG IV (17:33)
--- NOTE | 2022-08-16 17:52 | PHA.PROG ---
Admission Date/Time: August 16, 2022 17:25 Indication: skin Weight in k.183 kg Adjusted body weight in Kg: [place] body weight in Kg: Obesity Dosing Indication % IBW: Serum Creatinine - Last 168 Hours 08/16/22 08/16/22 14:39 14:40 Creatinine 1.01 1.00 Estimated CrCl and GFR - Last 168 Hours 08/16/22 08/16/22 14:39 14:40 Estim Creat Clear Calc 123.7 124.9 Estimated GFR > 60 > 60 Vancomycin Loading Dose: 1500mg X 1 Current Vancomycin Dosing Regimen: 1250mg Q12H Vancomycin Monitoring using AUC goal of 400 - 600 range with trough as surrogate marker: 488mg/L Date and Time for next Vancomycin Level to be drawn: 08/18/22 @1500 Pharmacist Comments on Vancomycin Plan: will continue to monitor renal; did not want to schedule trough before 4th dose due to timing Vancomycin dosing will take advantage of [employer] as a clinical decision support tool that uses Bayesian modeling to calculate individual patient's pharmacokinetic parameters and forecast the patient's drug concentration time course with the target goal AUC 24 range of 400 - 600 mg/L/hr.
[2022-08-16 18:03] LABS: Appearance Urine Clear; Color Urine Yellow; Glucose Urine UA Negative (Negative); Leukocyte Esterase Urine Negative (Negative); Nitrite Urine Negative (Negative); PH 5.5 (5.0-9.0); Specific Gravity - Urine >= 1.030 (1.005-1.025); Urine Blood Negative (Negative); Urine Ketones Negative (Negative); Urine Protein Negative (Neg-Trace)
[2022-08-16 18:25] LABS: Amphetamine Screen Urine Not Detected (Not Detect); Barbiturates, Urine Not Detected (Not Detect); Benzodiazepines Screen Urine Not Detected (Not Detect); Cannabinoid Screen Urine POSITIVE (Not Detect); Cocaine Screen Urine Not Detected (Not Detect); Fentanyl, urine Not Detected (Not Detect); Opiate Screen Urine Not Detected (Not Detect); Phencyclidine Screen Urine Not Detected (Not Detect)
[2022-08-16] MEDS: Piperacillin Sodium/Tazobactam 3.375 GM in 0.9 % Sodium Chloride 50 ML IV (20:31)
[2022-08-16 20:48] VITALS: BP 125/63; PULSE 66; RESP 16; O2SAT 97
[2022-08-17 01:28] VITALS: BP 118/52; PULSE 53; RESP 16; O2SAT 97
[2022-08-17] MEDS: Piperacillin Sodium/Tazobactam 3.375 GM in 0.9 % Sodium Chloride 50 ML IV ×4 (04:03→21:25)
[2022-08-17] MEDS: vancomycin HCL 1,250 MG in 0.9 % Sodium Chloride 250 ML 166.67 MG IV ×2 (05:15→16:43)
[2022-08-17 05:24] VITALS: BP 105/52; PULSE 59; RESP 14; TEMP 36.4; O2SAT 99
[2022-08-17 07:54] VITALS: BP 115/54; PULSE 55; RESP 16; O2SAT 98
--- NOTE | 2022-08-17 10:26 | PC.NURSE ---
Assumed care of patient at this time.
[2022-08-17 10:56] VITALS: BP 136/64; PULSE 59; RESP 17; TEMP 35.8; O2SAT 100
--- NOTE | 2022-08-17 11:00 | PM.PNGS ---
Subjective Subjective Date of Service: 08/17/22 Interval history: scrotum fourdrinier tender although not worse no fever says he feels well otherwise Physical Exam Vital Signs: Vital Signs: Last Vital Signs Temp 96.5 F L 08/17/22 10:56 Pulse 59 08/17/22 10:56 Resp 17 08/17/22 10:56 BP 136/64 08/17/22 10:56 Pulse Ox 100 08/17/22 10:56 O2 Del Method 08/17/22 10:56 BMI result Body Mass Index 28.0 Const: Other: looks well, ambulating on his own General: comfortable and no acute distress Resp: Effort & Inspection: normal respiratory effort Cardio: Rate: regular rate GI: Palpation (GI): Soft to palpation and nontender : Other: entire scrotal skin discolored, deeply ecchymotic, skin feels thickened diffusely, warm to touch, no cellulitis on the perineum; changes seemed to be limited to the scrotal skin, no pus no fluctuance Objective Data Active Medications Acetaminophen (Acetaminophen 325 Mg Tablet) 650 mg PO Q6H PRN PRN Reason: Pain, Mild (Pain Scale 1-3) Piperacillin Sod/Tazobactam (Sod 3.375 gm/ Sodium Chloride) 50 mls @ 100 mls/hr IV Q6H [facility] Last Admin: 08/17/22 10:05 Dose: 100 mls/hr Documented By: MIK Vancomycin HCl 1,250 mg/ (Sodium Chloride) 250 mls @ 166.667 mls/hr IV Q12H [facility] Last Infusion: 08/17/22 10:09 Dose: 0 mls/hr Documented By: MIK Ondansetron HCl (Ondansetron Hcl 4 Mg/2 Ml Vial) 4 mg IVPUSH Q8H PRN PRN Reason: Nausea and Vomiting Pharmacy Consult (Consult Rx Perform Med Rec) 1 each MISCELLANE ONCE PRN PRN Reason: Consult order Pharmacy Consult (Consult Rx Vancomycin Dosing) 1 each MISCELLANE DAILY PRN PRN Reason: Consult order Labs CBC & Chem 7: 08/16/22 14:40 08/16/22 14:40 Labs: Laboratory Results - last 24 hr 08/16/22 08/16/22 08/16/22 14:39 14:39 14:39 MCV MCH MCHC RDW Plt Count MPV Immature Gran % (Auto) Neut % (Auto) Lymph % (Auto) [place] % (Auto) Eos % (Auto) Baso % (Auto) Lymph # (Auto) [place] # (Auto) Eos # (Auto) Baso # (Auto) Abs Immat Gran (auto) Absolute Neuts (auto) Absolute Nucleated RBC Nucleated RBC % (auto) Anion Gap 13 Estim Creat Clear Calc 123.7 Estimated GFR > 60 Random Glucose 98 Lactic Acid 1.7 Calcium 10.2 D Total Bilirubin AST ALT Alkaline Phosphatase Total Protein Albumin Urine Color Urine Appearance Urine pH Ur Specific [place] Urine Protein Urine Glucose (UA) Urine Ketones Urine Blood Urine Nitrite Ur Leukocyte Esterase Urine Opiates Screen Urine Fentanyl Screen Ur Barbiturates Screen Ur Phencyclidine Scrn Ur Amphetamines Screen U Benzodiazepines Scrn Urine Cocaine Screen U Marijuana (THC) Screen COVID-19 (NAYELY) Negative COVID-Home Inventory S[pecialists Clin Com See Note 08/16/22 08/16/22 08/16/22 14:40 14:40 17:51 MCV 85.6 MCH 28.7 MCHC 33.5 RDW 13.2 Plt Count 218 MPV 10.3 Immature Gran % (Auto) 0.2 Neut % (Auto) 66.0 Lymph % (Auto) 24.2 [place] % (Auto) 8.0 Eos % (Auto) 1.1 Baso % (Auto) 0.5 Lymph # (Auto) 2.1 [place] # (Auto) 0.7 Eos # (Auto) 0.1 Baso # (Auto) 0.0 Abs Immat Gran (auto) 0.02 Absolute Neuts (auto) 5.6 Absolute Nucleated RBC 0.000 Nucleated RBC % (auto) 0.0 Anion Gap 15 Estim Creat Clear Calc 124.9 Estimated GFR > 60 Random Glucose 99 Lactic Acid Calcium 10.2 Total Bilirubin 0.7 AST 25 ALT 22 Alkaline Phosphatase 76 Total Protein 6.8 Albumin 4.7 Urine Color Yellow Urine Appearance Clear Urine pH 5.5 Ur Specific [place] >= 1.030 H Urine Protein Negative Urine Glucose (UA) Negative Urine Ketones Negative Urine Blood Negative Urine Nitrite Negative Ur Leukocyte Esterase Negative Urine Opiates Screen Urine Fentanyl Screen Ur Barbiturates Screen Ur Phencyclidine Scrn Ur Amphetamines Screen U Benzodiazepines Scrn Urine Cocaine Screen U Marijuana (THC) Screen COVID-19 (NAYELY) COVID-19 Medio Com 08/16/22 17:51 MCV MCH MCHC RDW Plt Count MPV Immature Gran % (Auto) Neut % (Auto) Lymph % (Auto) [place] % (Auto) Eos % (Auto) Baso % (Auto) Lymph # (Auto) [place] # (Auto) Eos # (Auto) Baso # (Auto) Abs Immat Gran (auto) Absolute Neuts (auto) Absolute Nucleated RBC Nucleated RBC % (auto) Anion Gap Estim Creat Clear Calc Estimated GFR Random Glucose Lactic Acid Calcium Total Bilirubin AST ALT Alkaline Phosphatase Total Protein Albumin Urine Color Urine Appearance Urine pH Ur Specific [place] Urine Protein Urine Glucose (UA) Urine Ketones Urine Blood Urine Nitrite Ur Leukocyte Esterase Urine Opiates Screen Not Detected Urine Fentanyl Screen Not Detected Ur Barbiturates Screen Not Detected Ur Phencyclidine Scrn Not Detected Ur Amphetamines Screen Not Detected U Benzodiazepines Scrn Not Detected Urine Cocaine Screen Not Detected U Marijuana (THC) Screen POSITIVE H COVID-19 (NAYELY) COVID-19 Clin Com Microbiology Microbiology Results: Microbiology 08/16/22 14:39 Blood Culture - Preliminary Blood - Venous Procedures Date of Service Date of Service: 08/17/22 Progress Note: A&P Assessment and plan (1) Scrotal swelling: Status: Acute Assessment and Plan: findings do not suggest infectious process changes limited to the scrotal skin no cellulitis he looks well still uncertain as to etiology of changes of the scrotal skin process does not seem to be spreading doubt he needs antibiotics but would defer to Urology Time Spent With Patient Time: Total time spent is greater than 50% in coordination of care (as documented) at patient's floor/unit and/or counseling patient: Quality Stroke Does the patient have a stroke diagnosis?: No VTE Prior VTE?: No VTE Risk Level:: Medical - low VTE Device Contraindication: Treatment Not Indicated VTE Drug Contraindication: Treatment Not Indicated
[2022-08-17] MEDS: Acetaminophen 325 MG TABLET 650 MG PO ×2 (11:35→17:35)
[2022-08-17 11:58] LABS: Creatinine Clr Calc Pharmacy 145.2; Estimated Glomerular Filt Rate > 60
--- NOTE | 2022-08-17 12:14 | HE.PHANOTE ---
re ivan continue current dose. Next trough due 08/18 @1500
--- NOTE | 2022-08-17 13:25 | HO.PM.IMPN ---
Subjective Subjective Date of Service: 08/17/22 Interval History: feeling better this morning is still complaining of scrotal discomfort with movement and palpation otherwise denies fever, no chills, no nausea, no vomiting tolerating diet no other acute issues overnight no urinary burning, no frequency. Review of Systems Review of Systems: Yes all other systems are reviewed and are negative Physical Exam Vital Signs: Vital Signs: Last Vital Signs Temp 96.5 F L 08/17/22 10:56 Pulse 59 08/17/22 10:56 Resp 17 08/17/22 10:56 BP 136/64 08/17/22 10:56 Pulse Ox 100 08/17/22 10:56 O2 Del Method 08/17/22 10:56 BMI result Body Mass Index 28.0 Const: Other: General? awake vicente rt x3 no acute dis tress.? Neck? supp le no JVD. CVS? re gular rate rhythm, Respiratory lungs clear to ausculta tion, no respirato ry distress, no wh eeze, no rhonchi. Gastrointestinal a bdomen soft, nonte nder, bowel sounds audible, no guard ing , no rigidity. Extremities no ed yevgeniy. Neuro nonfoca l scrotal examinat ion revealed dark discoloration of t he skin of the scr otum ,no redness, no induration, mil d discomfort, no s kin changes, mostl y ecchymotic looki ng More deeper col or this morning ot herwise unchanged Objective Data Active Medications Acetaminophen (Acetaminophen 325 Mg Tablet) 650 mg PO Q6H PRN PRN Reason: Pain, Mild (Pain Scale 1-3) Last Admin: 08/17/22 11:35 Dose: 650 mg Documented By: RUDDY Piperacillin Sod/Tazobactam (Sod 3.375 gm/ Sodium Chloride) 50 mls @ 100 mls/hr IV Q6H [facility] Last Infusion: 08/17/22 11:24 Dose: 0 mls/hr Documented By: RUDDY Vancomycin HCl 1,250 mg/ (Sodium Chloride) 250 mls @ 166.667 mls/hr IV Q12H [facility] Last Infusion: 08/17/22 10:09 Dose: 0 mls/hr Documented By: MIK Ondansetron HCl (Ondansetron Hcl 4 Mg/2 Ml Vial) 4 mg IVPUSH Q8H PRN PRN Reason: Nausea and Vomiting Pharmacy Consult (Consult Rx Perform Med Rec) 1 each MISCELLANE ONCE PRN PRN Reason: Consult order Pharmacy Consult (Consult Rx Vancomycin Dosing) 1 each MISCELLANE DAILY PRN PRN Reason: Consult order Labs CBC & Chem 7: 08/16/22 14:40 08/17/22 11:20 Labs: Laboratory Results - last 24 hr 08/16/22 08/16/22 08/16/22 14:39 14:39 14:39 MCV MCH MCHC RDW Plt Count MPV Immature Gran % (Auto) Neut % (Auto) Lymph % (Auto) Prairie % (Auto) Eos % (Auto) Baso % (Auto) Lymph # (Auto) [place] # (Auto) Eos # (Auto) Baso # (Auto) Abs Immat Gran (auto) Absolute Neuts (auto) Absolute Nucleated RBC Nucleated RBC % (auto) Anion Gap 13 Estim Creat Clear Calc 123.7 Estimated GFR > 60 Random Glucose 98 Lactic Acid 1.7 Calcium 10.2 D Total Bilirubin AST ALT Alkaline Phosphatase Total Protein Albumin Urine Color Urine Appearance Urine pH Ur Specific Gleason Urine Protein Urine Glucose (UA) Urine Ketones Urine Blood Urine Nitrite Ur Leukocyte Esterase Urine Opiates Screen Urine Fentanyl Screen Ur Barbiturates Screen Ur Phencyclidine Scrn Ur Amphetamines Screen U Benzodiazepines Scrn Urine Cocaine Screen U Marijuana (THC) Screen COVID-19 (NAYELY) Negative COVID-19 Clin Com See Note 08/16/22 08/16/22 08/16/22 14:40 14:40 17:51 MCV 85.6 MCH 28.7 MCHC 33.5 RDW 13.2 Plt Count 218 MPV 10.3 Immature Gran % (Auto) 0.2 Neut % (Auto) 66.0 Lymph % (Auto) 24.2 Prairie % (Auto) 8.0 Eos % (Auto) 1.1 Baso % (Auto) 0.5 Lymph # (Auto) 2.1 Prairie # (Auto) 0.7 Eos # (Auto) 0.1 Baso # (Auto) 0.0 Abs Immat Gran (auto) 0.02 Absolute Neuts (auto) 5.6 Absolute Nucleated RBC 0.000 Nucleated RBC % (auto) 0.0 Anion Gap 15 Estim Creat Clear Calc 124.9 Estimated GFR > 60 Random Glucose 99 Lactic Acid Calcium 10.2 Total Bilirubin 0.7 AST 25 ALT 22 Alkaline Phosphatase 76 Total Protein 6.8 Albumin 4.7 Urine Color Yellow Urine Appearance Clear Urine pH 5.5 Ur Specific Gleason >= 1.030 H Urine Protein Negative Urine Glucose (UA) Negative Urine Ketones Negative Urine Blood Negative Urine Nitrite Negative Ur Leukocyte Esterase Negative Urine Opiates Screen Urine Fentanyl Screen Ur Barbiturates Screen Ur Phencyclidine Scrn Ur Amphetamines Screen U Benzodiazepines Scrn Urine Cocaine Screen U Marijuana (THC) Screen COVID-19 (NAYELY) COVID-19 Clin Com 08/16/22 08/17/22 17:51 11:20 MCV MCH MCHC RDW Plt Count MPV Immature Gran % (Auto) Neut % (Auto) Lymph % (Auto) Prairie % (Auto) Eos % (Auto) Baso % (Auto) Lymph # (Auto) [place] # (Auto) Eos # (Auto) Baso # (Auto) Abs Immat Gran (auto) Absolute Neuts (auto) Absolute Nucleated RBC Nucleated RBC % (auto) Anion Gap Estim Creat Clear Calc 145.2 Estimated GFR > 60 Random Glucose Lactic Acid Calcium Total Bilirubin AST ALT Alkaline Phosphatase Total Protein Albumin Urine Color Urine Appearance Urine pH Ur Specific Gleason Urine Protein Urine Glucose (UA) Urine Ketones Urine Blood Urine Nitrite Ur Leukocyte Esterase Urine Opiates Screen Not Detected Urine Fentanyl Screen Not Detected Ur Barbiturates Screen Not Detected Ur Phencyclidine Scrn Not Detected Ur Amphetamines Screen Not Detected U Benzodiazepines Scrn Not Detected Urine Cocaine Screen Not Detected U Marijuana (THC) Screen POSITIVE H COVID-19 (NAYELY) COVID-19 Clin Com Microbiology Microbiology Results: Microbiology 08/16/22 14:39 Blood Culture - Preliminary Blood - Venous Assessment and Plan (1) Scrotal swelling: Status: Acute Plan 22-year-old gentleman with no significant have medical history presented to [facility] due to his scrotal swelling of greater than 24 hours with no associated fever chills no nausea vomiting normal see WBC and no drainage. ? Scrotal swelling persistent significant swelling of scrotum ecchymotic appearing, mild tenderness no drainage, patient nontoxic appearing most likely related to trauma and bruising ? no evidence of infection with no fevers, no chills, normal WBC count, but since no cause of swelling found cont. with IV antibiotics vancomycin and Zosyn follow? blood cultures and clinical course ? patient evaluated by General surgery Dr. Rodriguez and Dr. 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 likely patient had trauma while he was under influence of alcohol,or related to heavy exercise /running , urine toxicology positive for marijuana. ? ? history of alcohol use as per patient he only drinks alcohol socially, counseling done ? DVT prophylaxis low risk recommend early ambulation. Quality Stroke Does the patient have a stroke diagnosis?: No VTE Prior VTE?: No VTE Risk Level:: Medical - low VTE Device Contraindication: Treatment Not Indicated VTE Drug Contraindication: Treatment Not Indicated
[2022-08-17 16:57] VITALS: BP 124/55; PULSE 47; RESP 17; TEMP 36.6
--- NOTE | 2022-08-17 19:04 | PC.NURSE ---
Report given to BERLIN Henderson assuming care of patient at this time.
[2022-08-17 19:40] VITALS: BP 125/60; PULSE 63; RESP 18; TEMP 36.4; O2SAT 99
[2022-08-18 00:02] VITALS: BP 121/55; PULSE 78; RESP 17; TEMP 36.5; O2SAT 98
[2022-08-18] MEDS: Piperacillin Sodium/Tazobactam 3.375 GM in 0.9 % Sodium Chloride 50 ML IV ×2 (02:58→09:14)
[2022-08-18 04:22] VITALS: BP 105/53; PULSE 55; RESP 16; TEMP 36.6; O2SAT 97
[2022-08-18] MEDS: vancomycin HCL 1,250 MG in 0.9 % Sodium Chloride 250 ML 166.67 MG IV (04:38)
[2022-08-18 05:37] LABS: Creatinine Clr Calc Pharmacy 127.5; Estimated Glomerular Filt Rate > 60
[2022-08-18 08:41] VITALS: BP 107/55; PULSE 63; RESP 16; TEMP 36.4; O2SAT 97
--- NOTE | 2022-08-18 10:14 | PC.NURSE ---
pt AXOX4, has no c/o's. Systems intact except swollen scrotum; no pain or discomfort. he is just concern about d/c. was present at bedside
--- NOTE | 2022-08-18 10:58 | P.PNGS_ITS ---
Subjective Subjective Date of Service: 08/18/22 Interval history: Continues to feel well except for pain in the scrotum No fever Physical Exam Vital Signs: Vital Signs: Last Vital Signs Temp 97.5 F 08/18/22 08:41 Pulse 63 08/18/22 08:41 Resp 16 08/18/22 08:41 BP 107/55 L 08/18/22 08:41 Pulse Ox 97 08/18/22 08:41 O2 Del Method 08/18/22 08:41 BMI result Body Mass Index 28.0 Const: General: comfortable and no acute distress Resp: Effort & Inspection: normal respiratory effort Cardio: Rate: regular rate : Other: Diffuse dark discoloration of the scrotal skin, appearing ecchymotic, cellulitis, no fluctuance Objective Data Active Medications Acetaminophen (Acetaminophen 325 Mg Tablet) 650 mg PO Q6H PRN PRN Reason: Pain, Mild (Pain Scale 1-3) Last Admin: 08/17/22 17:35 Dose: 650 mg Documented By: RUDDY Piperacillin Sod/Tazobactam (Sod 3.375 gm/ Sodium Chloride) 50 mls @ 100 mls/hr IV Q6H [facility] Last Infusion: 08/18/22 10:13 Dose: 0 mls/hr Documented By: HATTIE Vancomycin HCl 1,250 mg/ (Sodium Chloride) 250 mls @ 166.667 mls/hr IV Q12H [facility] Last Infusion: 08/18/22 06:52 Dose: 0 mls/hr Documented By: JOVANNA Ondansetron HCl (Ondansetron Hcl 4 Mg/2 Ml Vial) 4 mg IVPUSH Q8H PRN PRN Reason: Nausea and Vomiting Pharmacy Consult (Consult Rx Perform Med Rec) 1 each MISCELLANE ONCE PRN PRN Reason: Consult order Pharmacy Consult (Consult Rx Vancomycin Dosing) 1 each MISCELLANE DAILY PRN PRN Reason: Consult order Labs CBC & Chem 7: 08/16/22 14:40 08/18/22 04:46 Labs: Laboratory Results - last 24 hr 08/17/22 08/18/22 11:20 04:46 Estim Creat Clear Calc 145.2 127.5 Estimated GFR > 60 > 60 Microbiology Microbiology Results: Microbiology 08/16/22 14:39 Blood Culture - Preliminary Blood - Venous No growth after 24 hours. 08/16/22 14:58 Blood Culture - Preliminary Blood - Venous No growth after 24 hours. Procedures Date of Service Date of Service: 08/18/22 Progress Note: A&P Assessment and plan (1) Scrotal swelling: Status: Acute Assessment and Plan: Despite diffuse discoloration and tenderness, this does not appear to be an infectious process He looks well and has had no fever at all Does not appear to require any debridement at this time I would defer future management to urology Time Spent With Patient Time: Total time spent is greater than 50% in coordination of care (as documented) at patient's floor/unit and/or counseling patient: Quality Stroke Does the patient have a stroke diagnosis?: No VTE Prior VTE?: No VTE Risk Level:: Medical - low VTE Device Contraindication: Treatment Not Indicated VTE Drug Contraindication: Treatment Not Indicated
--- NOTE | 2022-08-18 11:00 | MHC.CM.PN ---
Lives alone, no prior services or equipment, drives self, fully independent. Plan [place] via personal car [place] [facility] [place] CM to follow.
--- NOTE | 2022-08-18 12:59 | P.DS_ITS ---
DS: Providers Provider Date of Service: 08/18/22 Date of admission: 08/16/22 17:25 Primary care physician: Unknown Physician DS: Diagnosis Discharge Diagnosis (1) Scrotal swelling: Status: Acute DS: Summary Hospital Course Hospital Course: history of presenting illness Chief Complaint:? scrotal swelling ?22-year-old gentleman with no significant past medical history was seen at [facility] on 08/15 2 due to? scrotal swelling according to the patient he went? running at mouth down late afternoon did stay in years exercise then went to the bar where he had several? drinks? and randomly woke up at 02:00 with significant scrotal swelling and discoloration associated with mild discomfort therefore came to the emergency room where he had scrotal ultrasound that showed no significant abnormality at bedtime patient alcohol level was 142 patient was given a prescription of doxycycline 100 mg b.i.d. and was discharged home with recommendation for outpatient urology follow-up for concern for scrotal edema, orchitis / epididymitis cultures were drawn, however patient noticed worsening swelling of scrotum therefore returned back to the ED patient took 3 dosages of doxycycline, he denies associated fever chills, he denies any trauma he denies nausea vomiting abdominal pain he denies similar symptoms in the past he denies any drainage, in the emergency room today he was noticed to have purplish discoloration of? is scrotum with mild discomfort on the left side, Dr. Esteves reviewed the film and does not feel it is infected he fell that is more like a hematoma CT scan of the pelvis showed soft tissue swelling patient also evaluated in the emergency room by Dr. 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 hospital course 22-year-old gentleman with no significant have medical history presented to [facility] due to his scrotal swelling of greater than 24 hours with no associated fever chills no nausea vomiting normal see WBC and no drainage. Scrotal swelling admitted for scrotal swelling ecchymotic appearing, sudden in onset, with no fever chills, no trauma, patient was admitted to [facility] for close observation and was placed empirically on IV vancomycin and Zosyn patient remained hemodynamically stable blood cultures x2 were negative, he remained afebrile, with normal WBC count, he was followed closely by Dr. Rodriguez and Dr. Esteves they both agreed that clinical examination is not consistent with Paulo gangrene, patient monitored for 48 hours and since there is no worsening symptoms and swelling seems to be improved, therefore patient is being discharged home and recommended to take 3 more days of doxycycline that was prescribed to him from the emergency room department he was recommended to follow-up with Dr. Esteves in next 2-3 weeks patient drug toxicology screen was positive for marijuana ? ? Hiistory of alcohol use as per patient he only drinks alcohol socially, counseling done Time Spent with Patient Time attestation: Total time spent providing and/or coordinating discharge services: Discharge coordination time: Greater than 30 minutes Quality: Safe Use of Opioids Does Pt have an Active Cancer Diagnosis on the Problem List?: No Quality: Stroke Does the patient have a stroke diagnosis?: No Physical Exam Vital Signs: Vital Signs: Last Vital Signs Temp 97.5 F 08/18/22 08:41 Pulse 63 08/18/22 08:41 Resp 16 08/18/22 08:41 BP 107/55 L 08/18/22 08:41 Pulse Ox 97 08/18/22 08:41 O2 Del Method 08/18/22 08:41 BMI result Body Mass Index 28.0 Const: Other: General? awake alert x3 no acute distress.? Neck? supple no JVD. CVS? regular rate rhythm, Respiratory lungs clear to auscultation, no respiratory distress, no wheeze, no rhonchi. Gastrointestinal abdomen soft, nontender, bowel sounds audible, no guarding , no rigidity. Extremities no edema. Neuro nonfocal Scrotal examination revealed dark discoloration of the skin of the scrotum,ecchymotic looking ,no redness, no induration, mild discomfort, no skin changes, psych appropriate affect DS: Data Data Completed and Pending Labs on day of discharge: Laboratory Results - last 24 hr 08/18/22 04:46 Creatinine 0.98 Estim Creat Clear Calc 127.5 Estimated GFR > 60 Preliminary micro results at discharge 08/16/22 14:39 Blood Culture - Preliminary Blood - Venous No growth after 24 hours. 08/16/22 14:58 Blood Culture - Preliminary Blood - Venous No growth after 24 hours. Discharge Plan Discharge Patient Disposition: Home, Self-Care Discharge Diagnosis: scrotal swelling Referrals: Physician,Unknown J [Primary Care Provider] - 1 Week Discharge Medications: Continued doxycycline hyclate 100 mg capsule 100 mg PO BID 7 Days Qty: 14 0RF Discharge Orders: Discharge Order (Routine); Ordered 08/18/22 Ordered By: Radha Rausch Diet: Advance to usual diet Activity on Discharge: As tolerated Stand Alone Forms: Patient Portal Discharge page Care Plan Goals: scrotal swelling, take doxycycline 100 mg twice daily for 3 more days, swelling should gradually improve in next 2-3 weeks return to check with worsening redness swelling or pain Health Concerns: as above Plan of Treatment: follow up with Dr. Jakub esteves from Urology in next 2-3 weeks call to make an appointment Assessment: as above
--- NOTE | 2022-08-18 13:18 | MHC.CM.PN ---
order home self-care. CM acknowledge.
== END 2022-08-18 13:46 | disposition home or self-care (01) ==
LOC: HO.ED 16:51 → HO.EDOVER 17:49
PROVIDERS: Admitting Provider Hospitalist; Emergency Provider Student in an Organized Health Care Education/Training Program; Visit Provider Hospitalist
DX: N50.89 Other specified disorders of the male genital organs (principal); Z20.822 Contact with and (suspected) exposure to COVID-19
CPT/HCPCS: 36415; 72193; 76870; 80048; 80053; 80307; 81003; 82565; 83605; 85025; 87040; 87635; 93975; 96361; 96365; 96366; 96367; 99218; 99285; J2543; J3370; Q9967

== ENCOUNTER 2024-10-27 15:26 | Outpatient (REF) | payer MEDICAID, SELFPAY ==
[2024-10-27 16:06] LABS: MANUAL DIFF FLAG NO
[2024-10-27 16:14] LABS: Basophils Absolute Auto 0.1 X10*3/uL (0.0-0.2); Basophils Percent Auto 0.7 % (0-2); Eosinophils Absolute Auto 0.1 X10*3/uL (0.0-0.4); Eosinophils Percent Auto 1.7 % (0-4); Hematocrit 45.8 % (42.0-52.0); Hemoglobin 15.2 g/dl (14.0-18.0); Imm Gran Abs Auto 0.03 X10*3/uL (0.00-0.03); Imm Gran Pct Auto 0.4 % (0.0-0.4); Lymphocytes Absolute Auto 2.2 X10*3/uL (1.2-4.9); Lymphocytes Percent Auto 31.5 % (20-40); Mean Corpuscular HGB Conc 33.2 g/dl (31.0-36.0); Mean Corpuscular Hemoglobin 27.7 pg (27.0-33.0); Mean Corpuscular Volume 83.4 fL (80.0-98.0); Mean Platelet Volume 10.4 fL (9.4-12.4); Monocytes Absolute Auto 0.5 X10*3/uL (0.1-1.2); Monocytes Percent Auto 7.5 % (2-11); Neutrophils Percent Auto 58.2 % (45-73); Platelet Count 218 X10*3/uL (160-400); Red Blood Count 5.49 X10*6/uL (4.60-5.80); Red Cell Distribution Width 12.7 % (11.0-16.0); White Blood Count 6.9 X10*3/uL (4.8-10.8)
[2024-10-27 17:41] LABS: Alanine Aminotransferase 62 U/L (0-40); Albumin Level 4.6 g/dL (3.5-5.0); Anion Gap 12 (12-20); Aspartate Amino Transferase 38 U/L (5-37); Bilirubin Total 0.4 mg/dL (0.0-1.0); Blood Urea Nitrogen 14 mg/dL (9-16); Calcium 9.8 mg/dL (8.4-10.2); Carbon Dioxide 26 mmol/L (22-29); Chloride 108 mmol/L (96-108); Cholesterol 211 mg/dL (<200); Estimated Glomerular Filt Rate > 60; Glucose Random 85 mg/dL (60-115); HDL Cholesterol 50 mg/dL (>40); LDL Cholesterol Calculated 145 mg/dL (<100); Potassium 3.7 mmol/L (3.3-5.1); Sodium 142 mmol/L (135-145); TSH reflex Free T4 1.67 uIU/mL (0.32-4.0); Total Protein 6.9 g/dL (6.5-8.0); Triglycerides 84 mg/dL (<150)
[2024-10-27 17:47] LABS: Alkaline Phosphatase 70 U/L (39-117)
--- OUTSIDE RECORDS SUMMARY | 2024-11-02 20:59 | XMS_ITS | Continuity of Care Document ---
Author Name [facility] Organization DOD-OR Care Team Providers Care Collar Starcher Name Role Phone [facility] Unavailable Unavailable Problems Combined list of problems from Department of Defense and Veterans Affairs facilities. It does not include entries that were removed or entered in error. Problem Status Onset Date Problem Type Date of Resolution Comme nts Source Other physical and mental strain related to work Active Condition DoD Immunizations Combined list of available immunizations from the Department of Defense and Veterans Affairs facilities. Immunization Series Date Given Administered By Site Reaction Lot Number CVX Code Drug Transmitter Engineer In Charge Status Comments Source poliovirus vaccine, inactivated 1 2021 TIGRE FERNANDEZ [id number] 10 [employer] (MOD) complet ed polioviru s vaccine, inactivat ed DoD tuberculin skin test; purified protein derivative solution, intradermal 1 2021 TIGRE FERNANDEZ [id number] 96 Sanofi Pasteur (PMC) complet ed tuberculi n skin test; purified protein derivativ e solution, intraderm al DoD meningococcal polysaccharid e (groups A, C, Y and W-135) diphtheria toxoid conjugate vaccine (MCV4P) 1 2021 TIGRE FERNANDEZ [id number] 114 Sanofi Pasteur (PMC) complet ed meningoco ccal polysacch aride (groups A, C, Y and W-135) diphtheri a toxoid conjugate vaccine (MCV4P) DoD tetanus toxoid, reduced diphtheria toxoid, and acellular pertu is vaccine, adsorbed 1 2021 TIGRE FERNANDEZ [id number] 115 [employer] (SKB) complet ed tetanus toxoid, reduced diphtheri a toxoid, and acellular pertussis vaccine, adsorbed DoD Adenovirus, type 4 and type 7, live, oral 1 2021 TIGRE FERNANDEZ [id number] 9 143 Unknown (UNK) complet ed Adenoviru s, type 4 and type 7, live, oral DoD Influenza, injectable, quadrivalent, preservative free 1 2021 TIGRE FERNANDEZ [id number] 150 Other (OTH) complet ed Influenza , injectabl e, quadrival ent, preservat marques free DoD Hepatitis B vaccine (recombinant) , CpG adjuvanted 1 2021 TIGRE FERNANDEZ [id number] 189 SmithKline (SKB) complet ed Hepatitis B vaccine (recombin ant), CpG adjuvante d DoD SARS-COV-2 (COVID-19) vaccine, mRNA, spike protein, LNP, preservative free, 30 mcg/0.3mL dose 1 2021 TIGRE FERNANDEZ [id number] 208 [employer]ure, [id number] Inc (PFR) complet ed SARS-COV- 2 (COVID-19 ) vaccine, mRNA, spike protein, LNP, preservat marques free, 30 mcg/0.3mL dose [facility] Vital Signs Combined list of inpatient and outpatient Vital Signs from Department of Defense and Veterans Affairs, ranging from 12 months to all on record, depending upon the facility. Vital Sign Value Date Comments Source Systolic Blood Pressure 140mm[Hg] 01/20/2023 11:42:00 Ambulatory Pharmacy Diastolic Blood Pressure 83mm[Hg] 01/20/2023 11:42:00 Ambulatory Pharmacy Peripheral Pulse Rate 60bpm 01/20/2023 11:42:00 Ambulatory Pharmacy Encounters Combined list of: 1) Encounters from Department of Veterans Affairs facilities going back up to thelast 18 months. 2) Encounters from the Department of Defense facilities going back up to 280 months. Location Location Details Encounter Type Encounter Number Reason For Visit Attending Provider ADM Date DC Date Status Disposition Source [facility] Jaime sosa([facility] Hearing Conservat ion) OUTPATIENT [id number] PIPO RIVAS 01/30 Released w/o Limitations [facility] Cosme albarado([facility] D [facility]ion) [facility] OUTPATIENT [id number] NUHA IZQUIERDO 01/30 Released w/o Limitations [facility] Cosme albarado([facility] D Optomet ry Clinic) [facility] Jaime sosa([facility] [employer]) OUTPATIENT [id number] FIRST VISIT FOR IMMUNIZ ATIONS TIGRE FERNANDEZ 02/04 Released w/o Limitations [facility] Cosme albarado(MCR D [employer] ) [facility] Jaime n([facility] Third BAS) OUTPATIENT [id number] Notes Entered by: ANITA IGLESIAS 07 Feb 2022 0649 ------- ------- ------- ------- -- I/3034- Bug martita TRAOREYARELIS 02/07 Released w/o Limitations [facility] Cosme albarado([facility] BN BAS) [facility] Jaime n([facility] Med Dispo) OUTPATIENT [id number] Notes Entered by: FREN GREEN 11 Feb 2022 0725 ------- ------- ------- ------- -- ISMA TRAVIS/ CAPRICE NUNES 02/11 Released w/o Limitations [facility] Cosme albarado([facility] Med Dispo) Procedures Combined list of: 1) Procedures from Department of Veterans Affairs facilities going back up to thelast 18 months, not all VA non-surgical procedures are included; 2) All procedures from the Department of Defense facilities. Procedure Procedure Type Code Date Perfomer Comments Sour e PSYCHIATRIC DIAGNOSTIC EVALUATION 2021 [facility] COLLECTION OF VENOUS BLOOD BY VENIPUNCTURE 2021 [facility] OPHTHALMOLOGICAL SERVICES: MEDICAL EXAMINATION AND EVALUATION WITH INITIATION OF DIAGNOSTIC AND TREATMENT PROGRAM; INTERMEDIATE, NEW PATIENT 2021 [facility] PATIENT EDUCATION, NOT OTHERWISE CLASSIFIED, NON-PHYSICIAN PROVIDER, GROUP, PER SESSION 2021 [facility] Spectacles Services Fitting Monofocal Except For Aphakia Spectacles Services Fitting Monofocal Except For Aphakia [id number] EBONY PAUL [facility] Ophthalmological New Patient Start Intermediate Level Care Ophthalmological New Patient Start Intermediate Level Care 73766 EBONY PAUL [facility] Threshold Audiogram (Pure Tone) Automated Threshold Audiogram (Pure Tone) Automated 0208T AYANNA COBB [facility] Patient education, not otherwise cla ified, non-physician provider, group, per se ion AYANNA COBB [facility] Vaccines Viral Polio, Inactivated Vaccines Viral Polio, Inactivated 48105 TIGRE FERNANDEZ IPV; Series #: 1; 0.5 mL; IM; Right Arm; Mfg: Moderna US, Inc.; Lot: [id number]; VIS given (Mahesh: 06/29/2021; 09/07/2021 - Multiple). [facility] Skin Test Anergy Tuberculin Intradermal Skin Test Anergy Tuberculin Intradermal 38782 TIGRE FERNANDEZ IPPD; Series #: 1; 0.1 mL; ID; Left Arm; Mfg: Jiff; Lot: [id number]; VIS given. [facility] Meningococcal Polysaccharide Diphtheria Toxoid Conjugate Vaccine Meningococcal Polysaccharide Diphtheria Toxoid Conjugate Vaccine 00785 TIGRE FERNANDEZ Meningococcal MCV4P (Menactra); Series #: 1; 0.5 mL; IM; Right Arm; Mfg: Jiff; Lot: [id number]; VIS given (Mahesh: 06/29/2021). [facility] Tdap Vaccine Tdap Vaccine 85473 TIGRE FERNANDEZ Tdap; Series #: 1; 0.5 mL; IM; Left Arm; [facility]: [employer]; Lot: [id number]; VIS given (Mahesh: 06/29/2021). [facility] Vaccines Vaccines 52034 TIGRE FERNANDEZ Adenovirus Type 4 and 7; Series #: 1; 2 tablets; PO; Oral; Mfg: Unknown; Lot: [id number]; VIS given (Mahesh: 12/01/2019). [facility] Influenza Split Virus Vaccine IM Preserv Free 0.5mL Dosage Quadrivalent Influenza Split Virus Vaccine IM Preserv Free 0.5mL Dosage Quadrivalent 23146 TIGRE FERNANDEZ Influenza, Inj., quad., preservative free; Series #: 1; 0.5 mL; IM; Left Arm; Mfg: Other; Lot: [id number]; VIS given (Mahesh: 06/29/2021). [facility] Hepatitis B Vaccine (Active) Adult Dosage 2 Dose Schedule TIGRE FERNANDEZ Hep B- CpG (Heplisav-B); Series #: 1; 0.5 mL; IM; Right Arm; [facility]: [employer]; Lot: [id number]; VIS given (Mahesh: 09/07/2021). [facility] Vaccine SARS-CoV-2 mRNA-LNP Clint Protein Preservative Free 30mcg/0.3mL Diluent Reconstituted IM Vaccine SARS-CoV-2 mRNA-LNP Clint Protein Preservative Free 30mcg/0.3[place] [address] TIGRE FERNANDEZ COVID-19, 30 mcg/0.3 mL dose (Pfizer 12+ years); Series #: 1; 0.3 mL; IM; Left Arm; Mfg: [employer] Inc; Lot: [id number]; VIS given (Mahesh: 11/26/2021). [facility] Immunization Administration By Injection, One Vaccine Immunization Administration By Injection, One Vaccine 47212 TIGRE FERNANDEZ [facility] Immunization Administration By Injection, Each Additional Vaccine Immunization Administration By Injection, Each Additional Vaccine 00680 TIGRE FERNANDEZ [facility] Immunization Admin By Intranasal / Oral Route One Vaccine Immunization Admin By Intranasal / Oral Route One Vaccine 16766 TIGRE FERNANDEZ [facility] Vacc SARS-CoV-2 mRNA-LNP Clint Protein Preservative Free 30mcg/0.3mL Diluent Reconstituted IM First Dose Vacc SARS-CoV-2 mRNA-LNP Clint Protein Preservative Free 30mcg/0.3mL Diluent Reconstituted IM First Dose 0001A TIGRE FERNANDEZ [facility] Physician Supervised Injection Intramuscular Physician Supervised Injection Intramuscular 51330 TIGRE FERNANDEZ [facility] Venipuncture Venipuncture 86820 TIGRE FERNANDEZ [facility] Psychiatric Diagnostic Evaluation Initial Psychiatric Diagnostic Evaluation Initial 24468 RAY TREJO [facility] No data available for this section Ambulato ry Pharmacy Social History Combined list of available smoking, tobacco, and other social history from Department of Defense and Veterans Affairs facilities. Social History Type Response Date Comment Sour e This section is an empty soc ial history section. [facility] Sexual Orientation Ambula tory Pharmacy Gender identity Ambulator y Pharmacy Male Ambulatory Pha rmacy Assessment and Plan Combined list of future care activities from Department of Defense and Veterans Affairs facilities (e.g., assessment and plan notes, appointments, orders, and referrals). Additional future care activities may be listed in the Plan of Care section. Result Assessment and Plan Date Source Assessment and Plan Extracted from:Title : Education Note Author: MARIELA BRAXTON Date: 01/20/23 11/03/2024 Ambulatory Pharmacy Functional Status Combined list of recent functional and cognitive assessments recorded at Department of Defense and Veterans Affairs (VA).VA Functional [place] Measurement (FIM) Scale: 1 = Total Assistance (Subject = 0% +), 2 = Maximal Assistance (Subject = 25% +), 3 = Moderate Assistance (Subject = 50% +), 4 = Minimal Assistance (Subject = 75% +), 5 = Supervision, 6 = Modified [place] (Device), 7 = Complete [place] (Timely, Safely). Assessment Date/Time Source Assessment Type Assessment Skill Assessment Score Assessment Details No data available for this section
== END 2024-10-27 15:27 | disposition home or self-care (01) ==
LOC: HO.HHCL 15:26
PROVIDERS: Visit Provider Internal Medicine Geriatric Medicine
DX: Z00.00 Encounter for general adult medical examination without abnormal findings (principal)
CPT/HCPCS: 36415; 80053; 80061; 84443; 85025

== ENCOUNTER 2024-10-28 15:23 | Outpatient (REF) | payer MEDICAID, SELFPAY ==
[2024-10-28 16:03] LABS: Appearance Urine Clear; Color Urine Yellow; Glucose Urine UA Negative (Negative); Leukocyte Esterase Urine Negative (Negative); Nitrite Urine Negative (Negative); Specific Gravity - Urine 1.015 (1.005-1.025); Urine Blood Negative (Negative); Urine Ketones Negative (Negative); Urine Protein Negative (Neg-Trace)
[2024-10-28 16:05] LABS: Bacteria Urine None Seen (None Seen); Hyaline Casts Urine 0-2 /LPF (0-2); RBC Urine 0-2 /HPF (0-2); Squamous Epithelial Cell Urine 0-2 /HPF (0-2); WBC Urine 0-5 /HPF (0-5)
--- OUTSIDE RECORDS SUMMARY | 2024-11-03 04:18 | XMS_ITS | Continuity of Care Document ---
Author Name [facility] Organization [facility] Care Team Providers Care Leather Flesher Name Role Phone [facility] Unavailable Unavailable Problems [...] Site Reaction Lot Number CVX Code Drug Bingo Worker Status Comments Source poliovirus vaccine, inactivated 1 2021 TIGRE FERNANDEZ [id number] 10 [employer]. (MOD) complet ed polioviru s vaccine, inactivat ed DoD tuberculin skin test; purified protein derivative solution, intradermal 1 2021 TIGRE FERNANDEZ [id number] 96 Sanofi Pasteur (PMC) complet ed tuberculi n skin test; purified protein derivativ e solution, intraderm al DoD meningococcal polysaccharid e (groups A, C, Y and W-135) diphtheria toxoid conjugate vaccine (MCV4P) 1 2021 TIGRE FERNANDEZ [id number] 114 Sanofi Pasteur (PMC) complet ed meningoco ccal polysacch aride (groups A, C, Y and W-135) diphtheri a toxoid conjugate vaccine (MCV4P) DoD tetanus toxoid, reduced diphtheria toxoid, and acellular pertu is vaccine, adsorbed 1 2021 TIGRE FERNANDEZ [id number] 115 [employer] (SKB) complet ed tetanus toxoid, reduced diphtheri a toxoid, and acellular pertussis vaccine, adsorbed DoD Adenovirus, type 4 and type 7, live, oral 1 2021 TIGRE FERNANDEZ [id number] 9 143 Unknown (UNK) complet ed Adenoviru s, type 4 and type 7, live, oral DoD Influenza, injectable, quadrivalent, preservative free 1 2021 TIGRE FERNANDEZ [id number] 150 Other (OTH) complet ed Influenza , injectabl e, quadrival ent, preservat marques free DoD Hepatitis B vaccine (recombinant) , CpG adjuvanted 1 2021 TIGRE FERNANDEZ [id number] 189 SmithKline (SKB) complet ed Hepatitis B vaccine (recombin ant), CpG adjuvante d DoD SARS-COV-2 (COVID-19) vaccine, mRNA, spike protein, LNP, preservative free, 30 mcg/0.3mL dose 1 2021 TIGRE FERNANDEZ [id number] 208 Swarm, [employer] (PFR) complet ed SARS-COV- 2 (COVID-19 ) vaccine, mRNA, spike protein, LNP, preservat marques free, 30 mcg/0.3mL dose [facility] Vital Signs Combined list of inpatient [...] ADM Date DC Date Status Disposition Source [facility] Jaime sosa([facility] Hearing Conservat ion) OUTPATIENT [id number] PIPO RIVAS 01/30 Released w/o Limitations [facility] Cosme albarado([facility] D Hearing Conserv ation) [facility] Opt[facility] OUTPATIENT [id number] NUHA IZQUIERDO 01/30 Released w/o Limitations [facility] Cosme albarado([facility] D Optomet ry Clinic) [facility] Jaime sosa([facility] [employer]) OUTPATIENT [id number] FIRST VISIT FOR IMMUNIZ ATIONS TIGRE FERNANDEZ 02/04 Released w/o Limitations [facility] Cosme albarado(MCR D [employer] ) [facility] Jaime n([facility] Third BAS) OUTPATIENT [id number] Notes Entered by: ANITA IGLESIAS 07 Feb 2022 0649 ------- ------- ------- ------- -- I/3034- Bug martita TRAOREYARELIS 02/07 Released w/o Limitations [facility] Cosme albarado([facility] BN BAS) [facility] Jaime n([facility] Med Dispo) OUTPATIENT [id number] Notes Entered by: FERN GREEN 11 Feb 2022 0725 ------- ------- ------- ------- -- ISMA TRAVIS/ CAPRICE NUNES 02/11 Released w/o Limitations [facility] Cosme albarado([facility] Med Dispo) Procedures Combined list of: 1) Procedures from Department of Veterans Affairs facilities going back up to thelast 18 months, not all VA non-surgical procedures are included; 2) All procedures from the Department of Defense facilities. Procedure Procedure Type Code Date Perfomer Comments Sour e PSYCHIATRIC DIAGNOSTIC EVALUATION 2021 [facility] COLLECTION OF VENOUS BLOOD BY VENIPUNCTURE 2021 [facility] OPHTHALMOLOGICAL SERVICES: MEDICAL EXAMINATION AND EVALUATION WITH INITIATION OF DIAGNOSTIC AND TREATMENT PROGRAM; INTERMEDIATE, NEW PATIENT 2021 [facility] PATIENT EDUCATION, NOT OTHERWISE CLASSIFIED, NON-PHYSICIAN PROVIDER, GROUP, PER SESSION 2021 [facility] Spectacles Services Fitting Monofocal Except For Aphakia Spectacles Services Fitting Monofocal Except For Aphakia 16703 EBONY PAUL [facility] Ophthalmological New Patient Start Intermediate Level Care Ophthalmological New Patient Start Intermediate Level Care 79012 EBONY PAUL [facility] Threshold Audiogram (Pure Tone) Automated Threshold Audiogram (Pure Tone) Automated 0208T AYANNA COBB [facility] Patient education, not otherwise cla ified, non-physician provider, group, per se ion AYANNA COBB [facility] Vaccines Viral Polio, Inactivated Vaccines Viral Polio, Inactivated 98861 TIGRE FERNANDEZ IPV; Series #: 1; 0.5 mL; IM; Right Arm; Mfg: Moderna US, Inc.; Lot: [id number]; VIS given (Mahesh: 06/29/2021; 09/07/2021 - Multiple). [facility] Skin Test Anergy Tuberculin Intradermal Skin Test Anergy Tuberculin Intradermal 29945 TIGRE FERNANDEZ IPPD; Series #: 1; 0.1 mL; ID; Left Arm; Mfg: [email or web address]; Lot: [id number]; VIS given. [facility] Meningococcal Polysaccharide Diphtheria Toxoid Conjugate Vaccine Meningococcal Polysaccharide Diphtheria Toxoid Conjugate Vaccine 77588 TIGRE FERNANDEZ Meningococcal MCV4P (Menactra); Series #: 1; 0.5 mL; IM; Right Arm; Mfg: [email or web address]; Lot: [id number]; VIS given (Mahesh: 06/29/2021). [facility] Tdap Vaccine Tdap Vaccine 14010 TIGRE FERNANDEZ Tdap; Series #: 1; 0.5 mL; IM; Left Arm; [facility] [employer]; Lot: [id number]; VIS given (Mahesh: 06/29/2021). [facility] Vaccines Vaccines 40164 TIGRE FERNANDEZ Adenovirus Type 4 and 7; Series #: 1; 2 tablets; PO; Oral; Mfg: Unknown; Lot: [id number]; VIS given (Mahesh: 12/01/2019). [facility] Influenza Split Virus Vaccine IM Preserv Free 0.5mL Dosage Quadrivalent Influenza Split Virus Vaccine IM Preserv Free 0.5mL Dosage Quadrivalent 45075 TIGRE FERNANDEZ Influenza, Inj., quad., preservative free; Series #: 1; 0.5 mL; IM; Left Arm; Mfg: Other; Lot: [id number]; VIS given (Mahesh: 06/29/2021). [facility] Hepatitis B Vaccine (Active) Adult Dosage 2 Dose Schedule TIGRE FERNANDEZ Hep B- CpG (Heplisav-B); Series #: 1; 0.5 mL; IM; Right Arm; [facility] [place] [employer]; Lot: [id number]; VIS given (Mahesh: 09/07/2021). [facility] Vaccine SARS-CoV-2 mRNA-LNP Clint Protein Preservative Free 30mcg/0.3mL Diluent Reconstituted IM Vaccine SARS-CoV-2 mRNA-LNP Clint Protein Preservative Free 30mcg/0.3mL [place] [address] TIGRE FERNANDEZ COVID-19, 30 mcg/0.3 mL dose (Pfizer 12+ years); Series #: 1; 0.3 mL; IM; Left Arm; Mfg: [employer]; Lot: [id number]; VIS given (Mahesh: 11/26/2021). [facility] Immunization Administration By Injection, One Vaccine Immunization Administration By Injection, One Vaccine 22228 TIGRE FERNANDEZ [facility] Immunization Administration By Injection, Each Additional Vaccine Immunization Administration By Injection, Each Additional Vaccine 64641 TIGRE FERNANDEZ [facility] Immunization Admin By Intranasal / Oral Route One Vaccine Immunization Admin By Intranasal / Oral Route One Vaccine 21688 TIGRE FERNANDEZ [facility] Vacc SARS-CoV-2 mRNA-LNP Clint Protein Preservative Free 30mcg/0.3mL Diluent Reconstituted IM First Dose Vacc SARS-CoV-2 mRNA-LNP Clint Protein Preservative Free 30mcg/0.3mL Diluent Reconstituted IM First Dose 0001A TIGRE FERNANDEZ [facility] Physician Supervised Injection Intramuscular Physician Supervised Injection Intramuscular 05247 TIGRE FERNANDEZ [facility] Venipuncture Venipuncture 34648 TIGRE FERNANDEZ [facility] Psychiatric Diagnostic Evaluation Initial Psychiatric Diagnostic Evaluation Initial 44845 RAY TREJO [facility] No data available for this section Ambulato ry Pharmacy Social History Combined list of available smoking, tobacco, and other social history from Department of Defense and Veterans Affairs facilities. Social History Type Response Date Comment Sour e This section is an empty soc ial history section. [facility] Sexual Orientation Ambula tory Pharmacy Gender [...] of Defense and Veterans Affairs (VA).VA Functional [place] Measurement (FIM) Scale: 1 = Total Assistance (Subject = 0% +), 2 = Maximal Assistance (Subject = 25% +), 3 = Moderate Assistance (Subject = 50% +), 4 = Minimal Assistance (Subject = 75% +), 5 = Supervision, 6 = Modified [place] (Device), 7 = Complete [place] (Timely, Safely). Assessment Date/Time Source Assessment Type Assessment Skill Assessment Score Assessment Details No data available for this section
== END 2024-10-28 15:24 | disposition home or self-care (01) ==
LOC: HO.HHCL 15:23
PROVIDERS: Visit Provider Internal Medicine Geriatric Medicine
DX: R03.0 Elevated blood-pressure reading, without diagnosis of hypertension (principal); Z00.00 Encounter for general adult medical examination without abnormal findings; R00.1 Bradycardia, unspecified
CPT/HCPCS: 81001